=== PATIENT | female | born 1965 | race Caucasian/White ===

== ENCOUNTER 2023-04-01 09:51 | Outpatient (OUT) | payer MEDICARE, SELFPAY ==
--- NOTE | 2023-04-01 09:57 | MM_ITS ---
Patient: CATHERINE LO Exam Date: 04/01/2023 : 1965 Gender:F Ordering : DR SHANTA HOFFMAN M.D. Admission #: [id number] Family : Order #: [id number] CLICK HERE TO VIEW EXAM RADIOLOGY REPORT PROCEDURE: MM TOMOSYNTHESIS SCREENING BI COMPARISON: MG MAMM SCREEN 3D OSCAR CAD, 12/20/2020. MG MAMM SCREEN 3D OSCAR CAD, 01/08/2022. INDICATIONS: Screening Calculator Name NCI Breast Cancer Risk Assessment Tool 5 Year Breast Cancer Risk 1.40% Lifetime Breast Cancer Risk 8.70% Personal Breast Cancer No Personal Ovarian Cancer No Treatments None Family Cancers Grandmother-paternal with ovarian cancer at age ~35; Father with lung cancer at age 68. LOCATION: [facility] BREAST COMPOSITION: Heterogeneously dense,which may obscure small masses. FINDINGS: DIAGNOSTIC CATEGORY 2--BENIGN FINDING. NO CHANGE FROM COMPARISON. Scattered benign-appearing calcifications are present. RIGHT BREAST: No significant suspicious finding. LEFT BREAST: No significant suspicious finding. RECOMMENDATIONS: ROUTINE MAMMOGRAM AND CLINICAL EVALUATION IN 12 MONTHS. PLEASE NOTE: A NORMAL MAMMOGRAM DOES NOT EXCLUDE THE POSSIBILITY OF BREAST CANCER. A CLINICALLY SUSPICIOUS PALPABLE LUMP SHOULD BE BIOPSIED. Dictated by: Pavan Elder MD on 04/01/2023 at 12:17 Approved by: Pavan Elder MD on 04/01/2023 at 12:53
== END 2023-04-01 09:52 | disposition home or self-care (01) ==
LOC: MAMMO 09:54
PROVIDERS: PCP Family Medicine; Visit Provider Family Medicine
DX: Z12.31 Encounter for screening mammogram for malignant neoplasm of breast (principal); Z80.41 Family history of malignant neoplasm of ovary; Z80.1 Family history of malignant neoplasm of trachea, bronchus and lung
CPT/HCPCS: 77063; 77067

== ENCOUNTER 2024-01-08 07:21 | Outpatient (REF) | payer MEDICARE, SELFPAY ==
--- OUTSIDE RECORDS SUMMARY | 2024-01-09 07:25 | XMS_ITS | CCD ---
Author Organization [facility] Inform ion Partnership [facility] Care Team Providers Care Doctor Of Audiology Name Role Phone DALTON, DR WOMACK Attending Unavailable DALTON, DR WOMACK Consulting Unavailable DALTON, DR WOMACK Primary Care Unavailable DALTON, DR WOMACK Admitting Unavailable Zieber, DR Yu Consulting Unavailable WEST, DR RICKIE Alas Consulting Unavailable SEAN ELIZABETH Attending Unavailable SEAN ELIZABETH Admitting Unavailable DALTON, DR WOMACK Primary Care Unavailable SEAN ELIZABETH Consulting Unavailable MD Jany Hoffman Primary Care Provider MD Lasha Jones Attending Provider [phone] Lasha Jones Attending Unavailable Lasha Jones Admitting Unavailable Jany Hoffman Primary Care Unavailable JANY HOFFMAN Attending Unavailable Problems Problem Classification Problem Date Documented Da te Episodic/Chronic Menopausal disorders (4 sources) Other primary ovarian failure; Translations: [OTHER PRIMARY OVARIAN FAILURE] Onset: 03-05-2022 Chronic Open wounds of head; neck; and trunk (1 source) Puncture wound of abdominal wall without foreign body, unspecified quadrant without penetration into peritoneal cavity, initial encounter; Translations: [Puncture wound of abdominal wall] 01-07-2020 Episodic Osteoporosis (1 source) Age-related osteoporosis without current pathological fracture; Translations: [Age-related osteoporosis without current pathological fracture] Onset: 02-19-2023 Chronic Other bone disease and musculoskeletal deformities (1 source) Other specified disorders of bone density and structure, unspecified site; Translations: [OTH D/O BONE DEN STRUCT UNS SITE] Onset: 03-07-2022 Episodic Other screening for suspected conditions (not mental disorders or infectious disease) (4 sources) Encounter for screening mammogram for malignant neoplasm of breast; Translations: [ENC SCR MAMMO MALIG NEOPLASM BREAST] Onset: 01-08-2022 Episodic Residual codes; unclassified (1 source) Family history of malignant neoplasm of trachea, bronchus and lung; Translations: [FAM HX MALIG NEOPLSM TRACH BRON LNG] Onset: 01-09-2022 Episodic Residual codes; unclassified (1 source) Family history of malignant neoplasm of ovary; Translations: [FAM HX MALIGNANT NEOPLASM OVARY] Onset: 01-09-2022 Episodic Results Test Name Value Interpretation Reference Range Facility Basic Metabolic Panelon 02-01 Anion gap [Moles/Vol] 13.9 mmol/L Normal 6.0-15.0 [facility] Comment on above: Performed By: #### B MP, CK, TSH3, PHOS, PTH, MG, ESR, [id number], CBC, CRP #### [facility] [address] Calcium [Mass/Vol] 10.1 mg/dL Normal 8.6-10.3 [facility] Comment on above: Performed By: #### B MP, CK, TSH3, PHOS, PTH, MG, ESR, [id number], CBC, CRP #### [facility] [address] Chloride [Moles/Vol] 103 mmol/L Normal 98-107 [facility] Comment on above: Performed By: #### B MP, CK, TSH3, PHOS, PTH, MG, ESR, [id number], CBC, CRP #### [facility] [address] CO2 [Moles/Vol] 29.0 mmol/L Normal 21.0-31.[address] [facility] Comment on above: Performed By: #### B MP, CK, TSH3, PHOS, PTH, MG, ESR, [id number], CBC, CRP #### [facility] [address] Creatinine [Mass/Vol] 0.87 mg/dL Normal 0.60-1.20 [facility] Comment on above: Performed By: #### B MP, CK, TSH3, PHOS, PTH, MG, ESR, [id number], CBC, CRP #### [facility] [address] [place] [address] [place] GFR/1.73 sq M.predicted MDRD (S/P/Bld) [Vol rate/Area] mL/min/{1.73_m2} Normal [facility] Comment on above: Performed By: #### B MP, CK, TSH3, PHOS, PTH, MG, ESR, [id number], CBC, CRP #### [facility] [address] Glucose [Mass/Vol] 103 mg/dL High 70-100 [facility] Comment on above: Result Comment: [facility] Glucose Reference Range is dependent on time and content of last meal. Glucose of more than 200 mg/dL in a nonstressed, ambulatory subject supports the diagnosis of Diabetes Mellitus. ADA recommended reference range Performed By: #### B MP, CK, TSH3, PHOS, PTH, MG, ESR, [id number], CBC, CRP #### [facility] [address] Potassium [Moles/Vol] 4.9 mmol/L Normal 3.5-5.1 [facility] Comment on above: Performed By: #### B MP, CK, TSH3, PHOS, PTH, MG, ESR, [id number], CBC, CRP #### [facility] [address] Sodium [Moles/Vol] 141 mmol/L Normal 136-145 [facility] Comment on above: Performed By: #### B MP, CK, TSH3, PHOS, PTH, MG, ESR, [id number], CBC, CRP #### [facility] [address] Urea nitrogen [Mass/Vol] 16 mg/dL Normal 7-25 [facility] Comment on above: Performed By: #### B MP, CK, TSH3, PHOS, PTH, MG, ESR, [id number], CBC, CRP #### [facility] [address] Basophils Auto (Bld) [#/Vol] Ordered By: Lasha Jones on 02-19-2023 Basophils (Bld) [#/Vol] 0.1 10*3/uL 0.0-0.2 [facility] Basophils/100 WBC Auto (Bld) Ordered By: Lasha Jones on 02-19-2023 Basophils/100 WBC (Bld) 1.1 % . [facility] C reactive protein [Mass/vol ume] in Serum or PlasmaOrdered By: Lasha Jones on 02-19-2023 CRP [Mass/Vol] < 0.5 mg/dL 0.0-0.5 [facility] C-Reactive Proteinon 023 CRP [Mass/Vol] mg/L Normal 0.0-0.5 [facility] Comment on above: Performed By: #### B MP, CK, TSH3, PHOS, PTH, MG, ESR, [id number], CBC, CRP #### [facility] [address] Calcium [Mass/volume] in Ser um or PlasmaOrdered By: Lasha Jones on 02-19-2023 Calcium [Mass/Vol] 10.1 mg/dL 8.6-10.3 [facility] Carbon dioxide, total [Moles /volume] in Serum or PlasmaOrdered By: Lasha Jones on 02-19-2023 CO2 [Moles/Vol] 29.0 mmol/L 21.0-31.[address] [facility] Chloride [Moles/volume] in S rosita or PlasmaOrdered By: Lasha Jones on 02-19-2023 Chloride [Moles/Vol] 103 mmol/L 98-107 [facility] Complete Blood Count Auto Di ffon 02-19-2023 Basophils (Bld) [#/Vol] 0.1 10*3/uL Normal 0.0-0.2 [facility] Comment on above: Performed By: #### B MP, CK, TSH3, PHOS, PTH, MG, ESR, [id number], CBC, CRP #### [facility] [address] [place] [id number] [place] Basophils/100 WBC (Bld) 1.1 % Normal . [facility] Comment on above: Performed By: #### B MP, CK, TSH3, PHOS, PTH, MG, ESR, [id number], CBC, CRP #### [address] Eosinophils (Bld) [#/Vol] 0.1 10*3/uL Normal 0.0-0.45 [facility] Comment on above: Performed By: #### B MP, CK, TSH3, PHOS, PTH, MG, ESR, [id number], CBC, CRP #### [address] Eosinophils/100 WBC (Bld) 1.9 % Normal . [facility] Comment on above: Performed By: #### B MP, CK, TSH3, PHOS, PTH, MG, ESR, [id number], CBC, CRP #### [address] Erythrocyte distribution width (RBC) [Ratio] 13.7 % Normal 11.9-15.3 [facility] Comment on above: Performed By: #### B MP, CK, TSH3, PHOS, PTH, MG, ESR, [id number], CBC, CRP #### [address] Hematocrit (Bld) [Volume fraction] 41.6 % Normal 34.0-46.4 [facility] Comment on above: Performed By: #### B MP, CK, TSH3, PHOS, PTH, MG, ESR, [id number], CBC, CRP #### [address] Hemoglobin (Bld) [Mass/Vol] 13.6 g/dL Normal 11.8-15.4 [facility] Comment on above: Performed By: #### B MP, CK, TSH3, PHOS, PTH, MG, ESR, [id number], CBC, CRP #### [address] Lymphocytes (Bld) [#/Vol] 1.9 10*3/uL Normal 1.00-4.8 [facility] Comment on above: Performed By: #### B MP, CK, TSH3, PHOS, PTH, MG, ESR, [id number], CBC, CRP #### [address] Lymphocytes/100 WBC (Bld) 35.6 % Normal . [facility] Comment on above: Performed By: #### B MP, CK, TSH3, PHOS, PTH, MG, ESR, [id number], CBC, CRP #### [address] MCH (RBC) [Entitic mass] 29.0 pg Normal 24.7-34.3 [facility] Comment on above: Performed By: #### B MP, CK, TSH3, PHOS, PTH, MG, ESR, [id number], CBC, CRP #### [address] MCV (RBC) [Entitic vol] 88.4 fL Normal 80-100 [facility] Comment on above: Performed By: #### B MP, CK, TSH3, PHOS, PTH, MG, ESR, [id number], CBC, CRP #### [address] Mean Corpuscular HGB Conc 32.8 g/dL Normal 32.0-35.0 [facility] Comment on above: Performed By: #### B MP, CK, TSH3, PHOS, PTH, MG, ESR, [id number], CBC, CRP #### [address] Monocytes (Bld) [#/Vol] 0.3 10*3/uL Normal 0.0-0.8 [facility] Comment on above: Performed By: #### B MP, CK, TSH3, PHOS, PTH, MG, ESR, [id number], CBC, CRP #### [address] Monocytes/100 WBC (Bld) 6.0 % Normal . [facility] Comment on above: Performed By: #### B MP, CK, TSH3, PHOS, PTH, MG, ESR, [id number], CBC, CRP #### [facility] [address] Neutrophils (Bld) [#/Vol] 3.0 10*3/uL Normal 1.8-7.7 [facility] Comment on above: Performed By: #### B MP, CK, TSH3, PHOS, PTH, MG, ESR, [id number], CBC, CRP #### [address] Neutrophils/100 WBC (Bld) 55.4 % Normal . [facility] Comment on above: Performed By: #### B MP, CK, TSH3, PHOS, PTH, MG, ESR, [id number], CBC, CRP #### [address] NRBC% 0.1 /100{WBC} Normal 0-0.5 [facility] Comment on above: Performed By: #### B MP, CK, TSH3, PHOS, PTH, MG, ESR, [id number], CBC, CRP #### [address] Platelet mean volume (Bld) [Entitic vol] 7.6 fL Normal 6.3-10.7 [facility] Comment on above: Performed By: #### B MP, CK, TSH3, PHOS, PTH, MG, ESR, [id number], CBC, CRP #### [address] Platelets (Bld) [#/Vol] 389 10*3/uL Normal 150-450 [facility] Comment on above: Performed By: #### B MP, CK, TSH3, PHOS, PTH, MG, ESR, [id number], CBC, CRP #### [address] RBC (Bld) [#/Vol] 4.70 10*6/uL Normal 3.60-5.00 [facility] Comment on above: Performed By: #### B MP, CK, TSH3, PHOS, PTH, MG, ESR, [id number], CBC, CRP #### [facility] [address] WBC (Bld) [#/Vol] 5.4 10*3/uL Normal 3.8-11.6 [facility] Comment on above: Performed By: #### B MP, CK, TSH3, PHOS, PTH, MG, ESR, [id number], CBC, CRP #### [facility] [address] Creatine Kinaseon 02-19-2023 CK [Catalytic activity/Vol] 111 U/L Normal [facility] Comment on above: Result Comment: PERF ORMED BY: [place] [address] PATHOLOGIST [employer]CTIONAL [employer]WRIT[employer] JOSE BRITT M.D. Performed By: #### B MP, CK, TSH3, PHOS, PTH, MG, ESR, [id number], CBC, CRP #### [address] Creatine kinase [Enzymatic a ctivity/volume] in Serum or PlasmaOrdered By: Lasha Jones on 02-19-2023 CK [Catalytic activity/Vol] 111 U/L [facility] Creatinine [Mass/volume] in Serum or PlasmaOrdered By: Lasha Jones on 02-19-2023 Creatinine [Mass/Vol] 0.87 mg/dL 0.60-1.20 [facility] Eosinophils Auto (Bld) [#/Vo l]Ordered By: Lasha Jones on 02-19-2023 Eosinophils (Bld) [#/Vol] 0.1 10*3/uL 0.0-0.45 [facility] Eosinophils/100 WBC Auto (Bl d)Ordered By: Lasha Jones on 02-19-2023 Eosinophils/100 WBC (Bld) 1.9 % . [facility] Erythrocyte Sedimentation Ra ashley 02-19-2023 ESR (Bld) [Velocity] 27 mm/h Normal 0-29 [facility] Comment on above: Result Comment: PERF ORMED BY: [place] [id number] PATHOLOGIST [employer]CTIONAL [employer] JOSE BRITT M.D. Performed By: #### B MP, CK, TSH3, PHOS, PTH, MG, ESR, [id number], CBC, CRP #### [facility] [address] [place] [id number] [facility] Erythrocyte distribution wid th Auto (RBC) [Ratio]Ordered By: Lasha Jones on 02-19-2023 Erythrocyte distribution width (RBC) [Ratio] 13.7 % 11.9-15.3 [facility] Erythrocyte sedimentation ra te by Photometric methodOrdered By: Lasha Jones on 02-19-2023 ESR Photometric method (Bld) [Velocity] 27 mm/hr 0-29 [facility] Glucose [Mass/volume] in Ser um or PlasmaOrdered By: Lasha Jones on 02-19-2023 Glucose [Mass/Vol] 103 mg/dL 70-100 [facility] Comment on above: ADA recommended refe rence rangeRandom Glucose Reference Range is dependent on time and content of last meal. Glucose of more than 200 mg/dL in a nonstressed, ambulatory subject supports the diagnosis of Diabetes Mellitus. Hematocrit Auto (Bld) [Volum e fraction]Ordered By: Lasha Jones on 02-19-2023 Hematocrit (Bld) [Volume fraction] 41.6 % 34.0-46.4 [facility] Hemoglobin [Mass/volume] in BloodOrdered By: Lasha Jones on 02-19-2023 Hemoglobin (Bld) [Mass/Vol] 13.6 g/dL 11.8-15.4 [facility] Leukocytes [#/volume] correc marley for nucleated erythrocytes in Blood by Automated counOrdered By: Lasha Jones on 02-19-2023 WBC corrected for nucl RBC Auto (Bld) [#/Vol] 5.4 10*3/uL 3.8-11.6 [facility] Lymphocytes Auto (Bld) [#/Vo l]Ordered By: Lasha Jones on 02-19-2023 Lymphocytes (Bld) [#/Vol] 1.9 10*3/uL 1.00-4.8 [facility] Lymphocytes/100 WBC Auto (Bl d)Ordered By: Lasha Jones on 02-19-2023 Lymphocytes/100 WBC (Bld) 35.6 % . [facility] MCH Auto (RBC) [Entitic mass ]Ordered By: Lasha Jones on 02-19-2023 MCH (RBC) [Entitic mass] 29.0 pg 24.7-34.3 [facility] MCHC Auto (RBC) [Mass/Vol]Or dered By: Lasha Jones on 02-19-2023 MCHC (RBC) [Mass/Vol] 32.8 g/dL 32.0-35.0 [facility] MCV Auto (RBC) [Entitic vol] Ordered By: Lasha Jones on 02-19-2023 MCV (RBC) [Entitic vol] 88.4 fL 80-100 [facility] Magnesiumon 02-19-2023 Magnesium [Mass/Vol] 2.3 mg/dL Normal 1.9-2.7 [facility] Comment on above: Performed By: #### B MP, CK, TSH3, PHOS, PTH, MG, ESR, [id number], CBC, CRP #### [facility] [address] Magnesium [Mass/volume] in S rosita or PlasmaOrdered By: Lasha Jones on 02-19-2023 Magnesium [Mass/Vol] 2.3 mg/dL 1.9-2.7 [facility] Monocytes Auto (Bld) [#/Vol] Ordered By: Lasha Jones on 02-19-2023 Monocytes (Bld) [#/Vol] 0.3 10*3/uL 0.0-0.8 [facility] Monocytes/100 WBC Auto (Bld) Ordered By: Lasha Jones on 02-19-2023 Monocytes/100 WBC (Bld) 6.0 % . [facility] Neutrophils Auto (Bld) [#/Vo l]Ordered By: Lasha Jones on 02-19-2023 Neutrophils (Bld) [#/Vol] 3.0 10*3/uL 1.8-7.7 [facility] Neutrophils/100 WBC Auto (Bl d)Ordered By: Lasha Jones on 02-19-2023 Neutrophils/100 WBC (Bld) 55.4 % . [facility] No Panel InformationOrdered By: Lasha Jones on 02-19-2023 Estimated GFR (CKD-EPI) > 60.0 mL/Min [facility] Creatinine Clearance (Chem N/A [facility] Nucleated erythrocytes [Pres ence] in Blood by Automated countOrdered By: Lasha Jones on 02-19-2023 Nucleated RBC Auto Ql (Bld) 0.1 /100{WBC} 0-0.5 [facility] Parathyrin.intact [Mass/volu me] in Serum or PlasmaOrdered By: Lasha Jones on 02-19-2023 Parathyrin.intact [Mass/Vol] 47.1 pg/mL [facility] Parathyroid Hormone Intacton 02-19-2023 Parathyroid Hormone Intact 47.1 pg/mL Normal [facility] Comment on above: Result Comment: PERF ORMED BY: [place] [address] PATHOLOGIST [employer]AL [employer] JOSE BRITT M.D. Performed By: #### B MP, CK, TSH3, PHOS, PTH, MG, ESR, [id number], CBC, CRP #### [facility] [address] [place] [address] Phosphate [Mass/volume] in S rosita or PlasmaOrdered By: Lasha Jones on 02-19-2023 Phosphate [Mass/Vol] 4.1 mg/dL 3.7-7.2 [facility] Phosphoruson 02-19-2023 Phosphate [Mass/Vol] 4.1 mg/dL Normal 3.7-7.2 [facility] Comment on above: Performed By: #### B MP, CK, TSH3, PHOS, PTH, MG, ESR, [id number], CBC, CRP #### [facility] [address] [place] [address] Platelet mean volume Auto (B ld) [Entitic vol]Ordered By: Lasha Jones on 02-19-2023 Platelet mean volume (Bld) [Entitic vol] 7.6 fL 6.3-10.7 [facility] Platelets Auto (Bld) [#/Vol] Ordered By: Lasha Jones on 02-19-2023 Platelets (Bld) [#/Vol] 389 10*3/uL 150-450 [facility] Potassium [Moles/volume] in Serum or PlasmaOrdered By: Lasha Jones on 02-19-2023 Potassium [Moles/Vol] 4.9 mmol/L 3.5-5.1 [facility] RBC Auto (Bld) [#/Vol]Ordere d By: Lasha Jones on 02-19-2023 RBC (Bld) [#/Vol] 4.70 10*6/uL 3.60-5.00 [facility] Serum or plasma anion gap de terminationOrdered By: Lasha Jones on 02-19-2023 Anion gap [Moles/Vol] 13.9 mmol/L 6.0-15.0 [facility] Sodium [Moles/volume] in Ser um or PlasmaOrdered By: Lasha Jones on 02-19-2023 Sodium [Moles/Vol] 141 mmol/L 136-145 [facility] Thyroid Stimulating Hormoneo n 02-19-2023 TSH Qn 1.74 m[IU]/L Normal 0.45-5.33 [facility] Comment on above: Performed By: #### B MP, CK, TSH3, PHOS, PTH, MG, ESR, [id number], CBC, CRP #### [facility] [address] [place] [address] Thyrotropin [Units/volume] i n Serum or PlasmaOrdered By: Lasha Jones on 02-19-2023 TSH Qn 1.74 m[IU]/L 0.45-5.33 [facility] Urea nitrogen [Mass/volume] in Serum or PlasmaOrdered By: Lasha Jones on 02-19-2023 Urea nitrogen [Mass/Vol] 16 mg/dL 7-25 [facility] Vitamin D 25 Hydroxy Totalon 02-19-2023 Vitamin D 25 Hydroxy Total 64.0 ng/mL Normal 30-100 [facility] Comment on above: Result Comment: JADE MIN D STATUS 25(OH)VITAMIN D RANGE (ng/mL) Deficient <20 Insufficient 20 to <30 Sufficient 30 to 100 Reference: Courtney Durand, Archana DURAN, et al. Evaluation,treatment, and prevention of vitamin D deficiency; an Endocrine Society clinical practice guideline. JCEM. 2010; 96(7):191-. PERFORMED BY: [facility] [address] [place] [id number] PATHOLOGIST FUNCTIONAL TE[employer]IT[employer] JOSE BRITT M.D. Performed By: #### B MP, CK, TSH3, PHOS, PTH, MG, ESR, [id number], CBC, CRP #### [facility] [address] Vitamin D+Metabolites [Mass/ volume] in Serum or PlasmaOrdered By: Lasha Jones on 02-19-2023 Vitamin D+Metabolites [Mass/Vol] 64.0 ng/mL 30-100 [facility] Comment on above: VITAMIN D STATUS 25( [place])VITAMIN D RANGE (ng/mL) Deficient <20 Insufficient 20 to <30Sufficient 30 to 100Reference: Courtney Durand, Archana DURAN, et al. Evaluation,treatment, and prevention of vitamin D deficiency; an Endocrine Society clinical practice guideline. JCEM. 2010; 96(7):1911-30. WBC Auto (Bld) [#/Vol]Ordere d By: Lasha Jones on 02-19-2023 WBC (Bld) [#/Vol] 5.4 10*3/uL 3.8-11.6 [facility] XR DEXA BONE DENSITYon 03-05 XR DEXA BONE DENSITY EXAMINATION: XR DEX A BONE DENSITY, 03/05/2022 9:55 AM EDT HISTORY: Primary ovarian failure COMPARISON: DEXA bone densitometry 11/23/2019 TECHNIQUE: Dual-energy X-ray absorptiometry (DEXA) bone density study performed for the axial skeleton. FINDINGS: SPINE ANALYSIS: Average bone mineral density is 0.914 g/cm2. T-score (standard deviation relative to young adult mean): -2.2 . +3.6% change since prior study. HIP ANALYSIS: Lowest bone mineral density is within the femoral neck, 0.802 g/cm2. T-score (standard deviation relative to young adult mean): -1.7 . -1.1% change since prior study. IMPRESSION: World Aram Organization Classification: Osteopenia - Moderate Fracture Risk Electronically authenticated by: VINCENZO MALAVE Date: 2022-03-05 10:34 Normal [facility] MG MAMM SCREEN 3D OSCAR CADon 01-08-2022 MG MAMM SCREEN 3D OSCAR CAD Patient: CATHERINE LO Exam Date: 01/08/2022 : 1965 Gender:F Ordering : M[employer] 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 Order #: [id number] CLICK HERE TO VIEW EXAM RADIOLOGY REPORT PROCEDURE: MAMMOGRAM SCREENING 3D BILATERAL CAD COMPARISON: MG MAMM SCREEN 3D OSCAR CAD, 12/20/2020. MG MAMM SCREEN OSCAR W CAD, 11/23/2019. INDICATIONS: Screening mammography Calculator Name NCI Breast Cancer Risk Assessment Tool 5 Year Breast Cancer Risk 1.40% Lifetime Breast Cancer Risk 8.90% Personal Breast Cancer No Personal Ovarian Cancer No Treatments None Family Cancers Grandmother-paternal with ovarian cancer at age 35; Father with lung cancer at age 68. LOCATION: [facility] BREAST COMPOSITION: Heterogeneously dense,which may obscure small masses. FINDINGS: DIAGNOSTIC CATEGORY 2--BENIGN FINDING. NO CHANGE FROM COMPARISON. Scattered benign-appearing calcifications are present. RIGHT BREAST: No significant suspicious finding. LEFT BREAST: No significant suspicious finding. RECOMMENDATIONS: ROUTINE MAMMOGRAM AND CLINICAL EVALUATION IN 12 MONTHS. PLEASE NOTE: A NORMAL MAMMOGRAM DOES NOT EXCLUDE THE POSSIBILITY OF BREAST CANCER. A CLINICALLY SUSPICIOUS PALPABLE LUMP SHOULD BE BIOPSIED. Dictated by: Rickie Randall MD on 01/08/2022 at 11:03 Approved by: Rickie Randall MD on 01/08/2022 at 11:04 Normal [facility] C-Reactive Proteinon 022 CRP IV <0.3 Normal [facility] In[employer] Analyst Comment on above: Performed By: #### T SH, CMP, CRP, ESR, CK, CBCAD #### [facility] [address] [place], [place] [id number] Complete Blood Count with Au to Diffon 09-10-2021 Basophils (Bld) [#/Vol] 0.08 10*3/uL Normal 0.00-0.20 [facility] Comment on above: Performed By: #### T SH, CMP, CRP, ESR, CK, CBCAD #### [facility] [address] [place], [place] [id number] Basophils/100 WBC (Bld) 1.0 % Normal [facility] Comment on above: Performed By: #### T SH, CMP, CRP, ESR, CK, CBCAD #### [facility] [address] [place], [place] [id number] Eosinophils (Bld) [#/Vol] 0.19 10*3/uL Normal 0.02-0.50 [facility] Comment on above: Performed By: #### T SH, CMP, CRP, ESR, CK, CBCAD #### [facility] [address] [place], [place] [id number] Eosinophils/100 WBC (Bld) 2.4 % Normal [facility] Comment on above: Performed By: #### T SH, CMP, CRP, ESR, CK, CBCAD #### [facility] [address] [place], [place] [id number] Erythrocyte distribution width (RBC) [Ratio] 14.3 % Normal 11.0-15.0 [facility] Comment on above: Performed By: #### T SH, CMP, CRP, ESR, CK, CBCAD #### [facility] [address] [place], [place] [id number] Hematocrit (Bld) [Volume fraction] 43.5 % Normal 35.0-47.0 [facility] Comment on above: Performed By: #### T SH, CMP, CRP, ESR, CK, CBCAD #### [facility] [address] [place], [place] [id number] Hemoglobin (Bld) [Mass/Vol] 13.9 g/dL Normal 11.6-15.5 [facility] Comment on above: Performed By: #### T SH, CMP, CRP, ESR, CK, CBCAD #### [facility] [address] [place], [place] [id number] Lymphocytes (Bld) [#/Vol] 2.6 10*3/uL Normal 0.9-3.9 [facility] Comment on above: Performed By: #### T SH, CMP, CRP, ESR, CK, CBCAD #### [facility] [address] [place], [place] [id number] Lymphocytes/100 WBC (Bld) 33.2 % Normal [facility] Comment on above: Performed By: #### T SH, CMP, CRP, ESR, CK, CBCAD #### [facility] [address] [place], [place] [id number] MCH (RBC) [Entitic mass] 28.8 pg Normal 27.0-33.0 [facility] Comment on above: Performed By: #### T SH, CMP, CRP, ESR, CK, CBCAD #### [facility] [address] [place], [place] [id number] MCHC (RBC) [Mass/Vol] 32.0 g/dL Normal 32.0-36.0 [facility] Comment on above: Performed By: #### T SH, CMP, CRP, ESR, CK, CBCAD #### [facility] [address] [place], [place] [id number] MCV (RBC) [Entitic vol] 90 fL Normal 80-100 [facility] Comment on above: Performed By: #### T SH, CMP, CRP, ESR, CK, CBCAD #### [facility] [address] [place], [place] [id number] Monocytes (Bld) [#/Vol] 0.5 10*3/uL Normal 0.2-0.9 [facility] Comment on above: Performed By: #### T SH, CMP, CRP, ESR, CK, CBCAD #### [facility] [address] [place], [place] [id number] Monocytes/100 WBC (Bld) 6.9 % Normal [facility] Comment on above: Performed By: #### T SH, CMP, CRP, ESR, CK, CBCAD #### [facility] [address] [place], [place] [id number] Neutrophils (Bld) [#/Vol] 4.4 10*3/uL Normal 1.5-7.8 [facility] Comment on above: Performed By: #### T SH, CMP, CRP, ESR, CK, CBCAD #### [facility] [address] [place], [place] [id number] Neutrophils/100 WBC (Bld) 56.2 % Normal [facility] Comment on above: Performed By: #### T SH, CMP, CRP, ESR, CK, CBCAD #### [facility] [address] [place], [place] [id number] Platelet mean volume (Bld) [Entitic vol] 9.50 fL Normal 7.50-12.50 [facility] Comment on above: Performed By: #### T SH, CMP, CRP, ESR, CK, CBCAD #### [facility] [address] [place], [place] [id number] Platelets (Bld) [#/Vol] 427 10*3/uL High 140-400 [facility] Comment on above: Performed By: #### T SH, CMP, CRP, ESR, CK, CBCAD #### [facility] [address] [place], [place] [id number] RBC (Bld) [#/Vol] 4.83 10*6/uL Normal 3.90-5.20 [facility] Comment on above: Performed By: #### T SH, CMP, CRP, ESR, CK, CBCAD #### [facility] [address] [place], [place] [id number] RDW-SD 47.3 fL Normal 37.0-50.0 [facility] Comment on above: Performed By: #### T SH, CMP, CRP, ESR, CK, CBCAD #### [facility] [address] [place], [place] [id number] WBC (Bld) [#/Vol] 7.9 10*3/uL Normal 3.8-11.0 [facility] Comment on above: Performed By: #### T SH, CMP, CRP, ESR, CK, CBCAD #### [facility] [address] [place], [place] [id number] Comprehensive Metabolic Pane taiwo 09-10-2021 Albumin [Mass/Vol] 5.2 g/dL High 3.6-5.1 [facility] Comment on above: Performed By: #### T SH, CMP, CRP, ESR, CK, CBCAD #### [facility] [address] [place], [place] [id number] Albumin/Globulin [Mass ratio] 2.4 {ratio} Normal 1.0-2.5 [facility] Comment on above: Performed By: #### T SH, CMP, CRP, ESR, CK, CBCAD #### [facility] [address] [place], [place] [id number] ALP [Catalytic activity/Vol] 115 U/L Normal 35-119 [facility] Comment on above: Performed By: #### T SH, CMP, CRP, ESR, CK, CBCAD #### [facility] [address] [place], [place] [id number] ALT [Catalytic activity/Vol] 18 U/L Normal 6-33 [facility] Comment on above: Result Comment: 05/02 Female reference range changed. Performed By: #### T SH, CMP, CRP, ESR, CK, CBCAD #### [facility] [address] [place], [place] [id number] Anion gap [Moles/Vol] 20 mmol/L Normal 12-20 [facility] Comment on above: Result Comment: Effe ctive 06/07/2019 reference range changed. Performed By: #### T SH, CMP, CRP, ESR, CK, CBCAD #### [facility] [address] [place], [place] [id number] AST [Catalytic activity/Vol] 24 U/L Normal 9-34 [facility] Comment on above: Performed By: #### T SH, CMP, CRP, ESR, CK, CBCAD #### [facility] [address] [place], [place] [id number] Bilirubin [Mass/Vol] 0.36 mg/dL Normal 0.30-1.20 [facility] Comment on above: Performed By: #### T SH, CMP, CRP, ESR, CK, CBCAD #### [facility] [address] [place], [place] [id number] BUN/CREA 23 Ratio High 6-22 [facility] Comment on above: Performed By: #### T SH, CMP, CRP, ESR, CK, CBCAD #### [facility] [address] [place], [place] [id number] Calcium [Mass/Vol] 10.3 mg/dL High 8.6-10.2 [facility] Comment on above: Performed By: #### T SH, CMP, CRP, ESR, CK, CBCAD #### [facility] [address] [place], [place] [id number] Chloride [Moles/Vol] 104 mmol/L Normal 98-107 [facility] Comment on above: Performed By: #### T SH, CMP, CRP, ESR, CK, CBCAD #### [facility] [address] [place], [place] [id number] CO2 [Moles/Vol] 23 mmol/L Normal 20-31 [facility] Comment on above: Performed By: #### T SH, CMP, CRP, ESR, CK, CBCAD #### [facility] [address] [place], [place] [id number] Creatinine [Mass/Vol] 0.8 mg/dL Normal 0.6-1.4 [facility] Comment on above: Performed By: #### T SH, CMP, CRP, ESR, CK, CBCAD #### [facility] [address] [place], [place] [id number] eGFRAA 97 mL/min/1.73m2 Normal >60 [facility] Comment on above: Performed By: #### T SH, CMP, CRP, ESR, CK, CBCAD #### [facility] [address] [place], [place] [id number] eGFRNAA 80 mL/min/1.73m2 Normal >60 [facility] Comment on above: Performed By: #### T SH, CMP, CRP, ESR, CK, CBCAD #### [facility] [address] [place], [place] [id number] Globulin (S) [Mass/Vol] 2.2 g/dL Normal 1.9-3.7 [facility] Comment on above: Performed By: #### T SH, CMP, CRP, ESR, CK, CBCAD #### [facility] [address] [place], [place] [id number] Glucose [Mass/Vol] 90 mg/dL Normal 65-99 [facility] [place] [facility] Comment on above: Result Comment: For FASTING Glucose --- ADA reference ranges: Normal 65-99 mg/dl Prediabetes 100-125 Diabetes >/= 126 Performed By: #### T SH, CMP, CRP, ESR, CK, CBCAD #### [facility] [address] [place], [place] [id number] Potassium [Moles/Vol] 4.3 mmol/L Normal 3.5-5.5 [facility] Comment on above: Performed By: #### T SH, CMP, CRP, ESR, CK, CBCAD #### [facility] [address] [place], [place] [id number] Protein [Mass/Vol] 7.4 g/dL Normal 6.1-8.1 [facility] [place] [facility] Comment on above: Performed By: #### T SH, CMP, CRP, ESR, CK, CBCAD #### [facility] [address] [place], [place] [id number] Sodium [Moles/Vol] 143 mmol/L Normal 135-146 [facility] [place] [facility] Comment on above: Performed By: #### T SH, CMP, CRP, ESR, CK, CBCAD #### [facility] [address] [place], [place] [id number] Urea nitrogen [Mass/Vol] 18 mg/dL Normal 7-25 [facility] Comment on above: Performed By: #### T SH, CMP, CRP, ESR, CK, CBCAD #### [facility] [address] [place], [place] [id number] Creatine Kinaseon 09-10-2021 CK [Catalytic activity/Vol] 72 U/L Normal 26-192 [facility] Comment on above: Performed By: #### T SH, CMP, CRP, ESR, CK, CBCAD #### [facility] [address] [place], [place] [id number] Hemoglobin A1Con 09-10-2021 EAG 114.02 Normal [facility] Comment on above: Performed By: #### A 1C #### [facility] [address] [place], [place] [id number] HbA1c (Bld) [Mass fraction] 5.6 % Normal 4.0-6.0 [facility] Comment on above: Performed By: #### A 1C #### [facility] [address] [place] [id number] Q - MARINE MULTIPLEX W/ REFLEX TO 11 ANTIBODY CASCADEon 09-10-2021 ANACHOICE(R) SCREEN Negative Normal NEGATIVE [facility] Comment on above: Order Comment: [facility] performed at: [facility], [facility], [address] , [address] [place] [address], [id number], Steward/Stewardess Tourist Class: Lisandro Layton MD [facility] Collection Date/Time: [facility] Results Received Date/Time: [facility] Reported Date/Time: Result Comment: A ne gative MARINE Multiplex, with Reflex to 11 Antibody [place] indicates the absence of detectable antibodies to component analytes consisting of double stranded DNA (dsDNA), chromatin, ribonucleoprotein (CIRCULATION MANAGER), Alexander/CIRCULATION MANAGER (Sm/CIRCULATION MANAGER), Alexander (Sm), SS-A, SS-B, Ashley-1, centromere B, Scl-70 and ribosomal P. A negative result should be interpreted in the context of the clinical and laboratory findings and does not rule out autoimmune disease characterized by other autoantibody specificities such as rheumatoid arthritis, autoimmune hepatitis, primary biliary cirrhosis, autoimmune thyroiditis, [place]'s disease, pernicious anemia, autoimmune neuropathies, vasculitis, celiac disease, and bullous disease. For additional information, please refer to [email or web address]/[email or web address] (This link is being provided for informational/ educational purposes only.) Performed By: #### 1 9946, 6646 #### [facility] [address] [place] [address] Q - LYME DISEASE AB screen W /REFLEX TO IgG IgMon 09-10-2021 LYME AB SCREEN <0.90 Normal [facility] Comment on above: Order Comment: [facility] performed at: [facility], [facility], [address] , [address] [place] [address], [id number], Steward/Stewardess Tourist Class: Lisandro Layton MD [facility] Collection Date/Time: [facility] Results Received Date/Time: [id number] [facility] Reported Date/Time: Result Comment: Inde x Interpretation ----- < 0.90 Negative 0.90-1.09 Equivocal > 1.09 Positive As recommended by the Food and Drug Administration (FDA), all samples with positive or equivocal results in a Borrelia burgdorferi antibody screen will be tested using a blot method. Positive or equivocal screening test results should not be interpreted as truly positive until verified as such using a supplemental assay (e.g., B. burgdorferi blot). The screening test and/or blot for B. burgdorferi antibodies may be falsely negative in early stages of Lyme disease, including the period when erythema migrans is apparent. Performed By: #### 1 9946, 6646 #### [facility] [address] [place] [address] RBC Sedimentation Rateon ESR (Bld) [Velocity] 37.00 mm/h High 0.00-30.00 [facility] Comment on above: Performed By: #### T SH, CMP, CRP, ESR, CK, CBCAD #### [facility] [address] [place], [place] [id number] TSHon 09-10-2021 TSH 2.500 uIU/mL Normal 0.400-4.500 [facility] Analyst Comment on above: Performed By: #### T SH, CMP, CRP, ESR, CK, CBCAD #### [facility] [address] [place], [place] [id number] Vitamin B12on 09-10-2021 Cobalamin (Vitamin B12) [Mass/Vol] 1113 pg/mL High 211-946 [facility] Comment on above: Performed By: #### B 12 #### [facility] [address] [place], [place] [id number] Outside Mammographyon 2020 Outside Mammography [phone] [id number]:127 Normal [facility] CT CARDIAC SCORINGon 06- CT CARDIAC SCORING Addendum Begins Patient Name: CATHERINE LO ADDENDUM: NON-CARDIOVASCULAR FINDINGS INCLUDED LUNGS, AIRWAYS AND PLEURA Endotracheal / endobronchial lesion: Negative Nodule: Negative Airspace disease: Negative Pleural effusion: Negative Pneumothorax: Negative Other: No acute or contributory unanticipated findings INCLUDED NON-CARDIOVASCULAR KENNEDY AND MEDIASTINUM Adenopathy: Negative Included esophagus: Unremarkable Other: No acute or contributory unanticipated findings INCLUDED BONES: No acute skeletal findings, noting less sensitivity and specificity without dedicated sagittal and coronal reformatted series. INCLUDED CHEST WALL No acute or contributory unanticipated findings INCLUDED UPPER ABDOMEN No acute or contributory unanticipated findings ------- NON-CARDIOVASCULAR IMPRESSION NO ACUTE OR CONTRIBUTORY UNEXPECTED FINDINGS OF THE INCLUDED NON-CARDIOVASCULAR STRUCTURES Electronically signed by: OSMAN SAGE MD Addendum Ends Patient Name: CATHERINE LO STUDY: CT CARDIAC SCORING; 11/09/2018 10:41 am INDICATION: 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 COMPARISON: None. ACCESSION NUMBER(S): [id number] ORDERING CLINICIAN: NAOMI PADILLA TECHNIQUE: Using prospective ECG gating, CT scan of the coronary arteries was performed without intravenous contrast. Coronary calcium scoring was performed according to the method of Agatston. CT Dose-Length Product (DLP): 60.7 mGy*cm CT Dose Reduction Employed: Yes, prospective gating, iterative reconstruction. FINDINGS: The score and distribution of calcium in the coronary arteries is as follows: LM 0 LAD 0 LCx 0 RCA 0 Total 0 The visualized mid/lower ascending thoracic aorta measures 3.7 cm in diameter. The heart is normal in size. No pericardial effusion is present. IMPRESSION: 1. Coronary artery calcium score of 0*. *Coronary artery calcium scoring may be helpful in predicting the risk for future coronary heart disease events. According to the [place] [employer] Clinical Expert Consensus Task Force, such testing provides important prognostic information in patients with more than one coronary heart disease risk factor. The coronary artery calcium score correlates with the annual risk of a non-fatal myocardial infarction or coronary heart disease . Coronary artery score Annual Risk 0-99 0.4% 100-399 1.3% >400 2.4% These three breakpoints correspond to lower, intermediate and high risk states for future coronary events. Such information should be used, along with appropriate clinical judgment, to make decisions regarding the intensity of risk factor management strategies to treat blood lipids and to modify other non-lipid coronary risk factors. Reference: Adele P et al. Circulation. 2007; 115:402-426 Reading Business Unit Manager: Dr. Benoit Gu, Date: 11/10/2018 6:46 pm Electronically signed by: OSMAN SAGE MD [facility] Encounters Encounter Date Encounter Type Care Provider Facility Start: 08-26-2023 End: 08-26-2023 ambulatory JANY HOFFMAN Not Available Start: 02-19-2023 End: 02-19-2023 ambulatory Lasha Jones Facility:[facility] Start: 02-19-2023 End: 02-19-2023 ambulatory MD Jany Hoffman Work Phone: [facility] Work Phone: Start: 02-19-2023 End: 02-19-2023 Patient encounter procedure MD Jany Hoffman Work Phone: [facility] [address] Work Phone: Start: 03-05-2022 End: 03-06-[address] JANY HOFFMAN Facility:[facility] Start: 01-08-2022 End: 01-09-[address] RICKIE RANDALL Facility:[facility] Procedures Date Procedure Procedure Detail Performing Clinician Start: 10-27-2018 Echocardiography Immunizations Immunization Date Immunization Notes Care Provider Fa cility 01-07-2020 tetanus toxoid, redu lorene diphtheria toxoid, and acellular pertussis vaccine, adsorbed MD Jany Hoffman Work Phone: [facility] Payers Date Payer Category Payer Self-pay [id number] 1965 Unknown [id number] 1965 Unknown [id number] 1965 Unknown [id number] 1959 Medicare [id number] Unknown [employer] [id number] Unknown [id number] Social History Date Type Detail Facility Start: 01-07-2020 Tobacco smoking stat us NHIS Never smoked tobacco (finding) [facility] Start: 1965 Sex Assigned At Female F [facility] Evaluation note Note Date & Type Note Facility Evaluation note No assessment information availa ble [facility] Work Phone: Summary Purpose Family History No Family History Records Found Relationship Condition Age at Onset Recorded Date/T mary ann father Malignant neoplasm Unknown Advance Directives No Advanced Directives Records Found Advance Directive Response Recorded Date/ Time Advance Directives No March 12, 2018 11:49am Additional Source Comments INFORMATION SOURCE (unrecogn ized section and content) DATE CREATED AUTHOR 11/11/2018 [facility] DATE CREATED AUTHOR AUTHOR'S ORGANIZ ATION 09/11/2021 [facility] DATE CREATED AUTHOR AUTHOR'S ORGANIZ ATION 10/03/2021 [facility] DATE CREATED AUTHOR AUTHOR'S ORGANIZ ATION 03/08/2022 [facility] DATE CREATED AUTHOR AUTHOR'S ORGANIZ ATION 03/04/2023 [facility] DATE CREATED AUTHOR AUTHOR'S ORGANIZ ATION 08/27/2023 [facility] EPIC Care Teams (unrecognized sec tion and content) Team Status: Active Member Role Status Dates Jany Hoffman MD Primary Care Provider Active Team Status: Inactive Member Role Status Dates Jany Hoffman MD Primary Care Provider Active Lasha Jones MD Attending Provider Active Goals (unrecognized section and content) Goals may be documented in a n alternate section FOR RECORDS PERTAINING TO PATIENTS WHO ARE OR HAVE BEEN ENROLLED IN A CHEMICAL DEPENDENCY/SUBSTANCEABUSE PROGRAM, SOME INFORMATION MAY BE OMITTED. This clinical summary was aggregated from multiple sources. Caution should be exercised in using it in the provision of clinical care. This summary normalizes information from multiple sources, and as a consequence, information in this document may materially change the coding, format and clinical context of patient data. In addition, data may be omitted in some cases. CLINICAL DECISIONS SHOULD BE BASED ON THE PRIMARY CLINICAL RECORDS. [facility]. provides no warranty or guarantee of the accuracy or completeness of information in this document.
[2024-01-09 15:27] LABS: C. Difficile PCR NEGATIVE (NEGATIVE)
== END 2024-01-08 07:22 | disposition home or self-care (01) ==
LOC: LAB 07:21
PROVIDERS: PCP Family Medicine; Visit Provider Physician Assistant
DX: R19.7 Diarrhea, unspecified (principal); R19.5 Other fecal abnormalities
CPT/HCPCS: 87045; 87046; 87427; 87493

== ENCOUNTER 2024-02-04 12:30 | Outpatient (OUT) | payer MEDICARE, SELFPAY ==
--- NOTE | 2024-02-04 | CT_ITS ---
The [address] [address] Patient Name: CATHERINE LO MRN: [id number] date: 1965 Sex: F Assigned Patient Location: CT Current Patient Location: CT Accession/Order Number: [id number] Exam Date: 02/04/2024 13:35 Report Date: 02/04/2024 14:11 At the request of: NON-STAFF PHYSICIAN Procedure: CT abdomen pelvis w con EXAM: CT scan of the abdomen and pelvis using 100 mL of IV iodinated contrast. Oral contrast. Dose reduction technique used: Automated exposure control and/or adjustment of the mA and/or kV according to patient size and/or use of iterative reconstruction technique. REASON FOR EXAM: weight loss COMPARISON: None FINDINGS: Focally distended segment of the duodenum in the third portion of the duodenum that is hypoenhancing, unclear if this is simply due to duodenal contents versus a underlying mass. Suggestion of a small lucent lesion in the upper L3 vertebral body. Small fat-containing umbilical hernia. No evidence of appendicitis. No free fluid in the abdomen or pelvis. No free intraperitoneal air. No dilated or thickened loops of small bowel or colon. No hydronephrosis or obstructing renal or ureteral calculi. Liver, pancreas, spleen, bilateral kidneys, and bilateral adrenal glands are otherwise unremarkable. No lymphadenopathy in the abdomen or pelvis. Remainder unremarkable. CT/CT abdomen pelvis w con IMPRESSION: 1. Possible duodenal mass versus focally distended segment. Recommend further evaluation with endoscopy if none performed recently. 2. Small lucent L3 lesion could represent a small hemangioma although is indeterminate. Electronically authenticated by: STU AMBROSIO Date: 02/04/2024 14:11
--- OUTSIDE RECORDS SUMMARY | 2024-02-04 12:51 | XMS_ITS | CCD ---
Author Organization [facility] Inform ion Partnership [facility] Care Team Providers Care Cna Caregiver Name Role Phone DR JANY HOFFMAN Attending Unavailable DALTON, DR WOMACK Consulting Unavailable DALTON, DR WOMACK Primary Care Unavailable DALTON, DR WOMACK Admitting Unavailable Zieber, DR Yu Consulting Unavailable WEST, DR RICKIE Alas Consulting Unavailable SEAN ELIZABETH Attending Unavailable SEAN ELIZABETH Admitting Unavailable DALTON, DR WOMACK Primary Care Unavailable SEAN ELIZABETH Consulting Unavailable MD Jany Hoffman Primary Care Provider [phone] MD Lasha Jones Attending Provider Lasha Jones Attending Unavailable Lasha Jones Admitting Unavailable Jany Hoffman Primary Care Unavailable JANY HOFFMAN Attending Unavailable SHELLY GONZALEZ Attending Unavailable Luis Veliz Attending Unavailsia ble Problems Problem Classification Problem Date Documented Da [...] Anion gap [Moles/Vol] 13.9 mmol/L Normal 6.0-15.0 [facility] Comment on above: Performed By: #### B MP, CK, TSH3, PHOS, PTH, MG, ESR, [id number], CBC, CRP #### [facility] [address] Calcium [Mass/Vol] 10.1 mg/dL Normal 8.6-10.3 [facility] Comment on above: Performed By: #### B MP, CK, TSH3, PHOS, PTH, MG, ESR, [id number], CBC, CRP #### [facility] [address] Chloride [Moles/Vol] 103 mmol/L Normal 98-107 [facility] Comment on above: Performed By: #### B MP, CK, TSH3, PHOS, PTH, MG, ESR, [id number], CBC, CRP #### [facility] [address] CO2 [Moles/Vol] 29.0 mmol/L Normal 21.0-31.0 [facility] Comment on above: Performed By: #### B MP, CK, TSH3, PHOS, PTH, MG, ESR, [id number], CBC, CRP #### [facility] [address] Creatinine [Mass/Vol] 0.87 mg/dL Normal 0.60-1.20 [facility] Comment on above: Performed By: #### B MP, CK, TSH3, PHOS, PTH, MG, ESR, [id number], CBC, CRP #### [facility] [address] GFR/1.73 sq M.predicted MDRD (S/P/Bld) [Vol rate/Area] mL/min/{1.73_m2} Normal [facility] Comment on above: Performed By: #### B MP, CK, TSH3, PHOS, PTH, MG, ESR, [id number], CBC, CRP #### [facility] [address] Glucose [Mass/Vol] 103 mg/dL High 70-100 [facility] Comment on above: Result Comment: [facility] Glucose Reference Range is dependent on time and content of last meal. Glucose of more than 200 mg/dL in a nonstressed, ambulatory subject supports the diagnosis of Diabetes Mellitus. ADA recommended reference range Performed By: #### B MP, CK, TSH3, PHOS, PTH, MG, ESR, [id number], CBC, CRP #### [facility] [address] Potassium [Moles/Vol] 4.9 mmol/L Normal 3.5-5.1 [facility] Comment on above: Performed By: #### B MP, CK, TSH3, PHOS, PTH, MG, ESR, [id number], CBC, CRP #### [facility] [address] Sodium [Moles/Vol] 141 mmol/L Normal 136-145 [facility] Comment on above: Performed By: #### B MP, CK, TSH3, PHOS, PTH, MG, ESR, [id number], CBC, CRP #### [facility] [address] Urea nitrogen [Mass/Vol] 16 mg/dL Normal 7-25 [facility] Comment on above: Performed By: #### B MP, CK, TSH3, PHOS, PTH, MG, ESR, [id number], CBC, CRP #### [facility] [address] [place] [address] [place] Basophils Auto (Bld) [#/Vol] Ordered By: Lasha Jones on 02-19-2023 Basophils (Bld) [#/Vol] 0.1 10*3/uL 0.0-0.2 [facility] Basophils/100 WBC Auto (Bld) Ordered By: Lasha Jones on 02-19-2023 Basophils/100 WBC (Bld) 1.1 % . [facility] C reactive protein [Mass/vol ume] in Serum or PlasmaOrdered By: Lasha Jones on 02-19-2023 CRP [Mass/Vol] < 0.5 mg/dL 0.0-0.5 [facility] C-Reactive Proteinon 023 CRP [Mass/Vol] mg/L Normal 0.0-0.5 [facility] Comment on above: Performed By: #### B MP, CK, TSH3, PHOS, PTH, MG, ESR, [id number], CBC, CRP #### [facility] [address] Calcium [Mass/volume] in Ser um or PlasmaOrdered By: Lasha Jones on 02-19-2023 Calcium [Mass/Vol] 10.1 mg/dL 8.6-10.3 [facility] Carbon dioxide, total [Moles /volume] in Serum or PlasmaOrdered By: Lasha Jones on 02-19-2023 CO2 [Moles/Vol] 29.0 mmol/L 21.0-31.0 [facility] Chloride [Moles/volume] in S rosita or PlasmaOrdered By: Lasha Jones on 02-19-2023 Chloride [Moles/Vol] 103 mmol/L 98-107 [facility] Complete Blood Count Auto Di ffon 02-19-2023 Basophils (Bld) [#/Vol] 0.1 10*3/uL Normal 0.0-0.2 [facility] Comment on above: Performed By: #### B MP, CK, TSH3, PHOS, PTH, MG, ESR, [id number], CBC, CRP #### [facility] [address] [place] [id number] [place] Basophils/100 WBC (Bld) 1.1 % Normal . [facility] Comment on above: Performed By: #### B MP, CK, TSH3, PHOS, PTH, MG, ESR, [id number], CBC, CRP #### [address] Eosinophils (Bld) [#/Vol] 0.1 10*3/uL Normal 0.0-0.45 [facility] Comment on above: Performed By: #### B MP, CK, TSH3, PHOS, PTH, MG, ESR, [id number], CBC, CRP #### [facility] [address] Eosinophils/100 WBC (Bld) 1.9 % Normal . [facility] Comment on above: Performed By: #### B MP, CK, TSH3, PHOS, PTH, MG, ESR, [id number], CBC, CRP #### [address] Erythrocyte distribution width (RBC) [Ratio] 13.7 % Normal 11.9-15.3 [facility] Comment on above: Performed By: #### B MP, CK, TSH3, PHOS, PTH, MG, ESR, [id number], CBC, CRP #### [address] Hematocrit (Bld) [Volume fraction] 41.6 % Normal 34.0-46.4 [facility] Comment on above: Performed By: #### B MP, CK, TSH3, PHOS, PTH, MG, ESR, [id number], CBC, CRP #### [address] Hemoglobin (Bld) [Mass/Vol] 13.6 g/dL Normal 11.8-15.4 [facility] Comment on above: Performed By: #### B MP, CK, TSH3, PHOS, PTH, MG, ESR, [id number], CBC, CRP #### [address] Lymphocytes (Bld) [#/Vol] 1.9 10*3/uL Normal 1.00-4.8 [facility] Comment on above: Performed By: #### B MP, CK, TSH3, PHOS, PTH, MG, ESR, [id number], CBC, CRP #### [address] Lymphocytes/100 WBC (Bld) 35.6 % Normal . [facility] Comment on above: Performed By: #### B MP, CK, TSH3, PHOS, PTH, MG, ESR, [id number], CBC, CRP #### [address] MCH (RBC) [Entitic mass] 29.0 pg Normal 24.7-34.3 [facility] Comment on above: Performed By: #### B MP, CK, TSH3, PHOS, PTH, MG, ESR, [id number], CBC, CRP #### [address] MCV (RBC) [Entitic vol] 88.4 fL Normal 80-100 [facility] Comment on above: Performed By: #### B MP, CK, TSH3, PHOS, PTH, MG, ESR, [id number], CBC, CRP #### [address] Mean Corpuscular HGB Conc 32.8 g/dL Normal 32.0-35.0 [facility] Comment on above: Performed By: #### B MP, CK, TSH3, PHOS, PTH, MG, ESR, [id number], CBC, CRP #### [address] Monocytes (Bld) [#/Vol] 0.3 10*3/uL Normal 0.0-0.8 [facility] Comment on above: Performed By: #### B MP, CK, TSH3, PHOS, PTH, MG, ESR, [id number], CBC, CRP #### [address] Monocytes/100 WBC (Bld) 6.0 % Normal . [facility] Comment on above: Performed By: #### B MP, CK, TSH3, PHOS, PTH, MG, ESR, [id number], CBC, CRP #### [address] Neutrophils (Bld) [#/Vol] 3.0 10*3/uL Normal 1.8-7.7 [facility] Comment on above: Performed By: #### B MP, CK, TSH3, PHOS, PTH, MG, ESR, [id number], CBC, CRP #### [address] Neutrophils/100 WBC (Bld) 55.4 % Normal . [facility] Comment on above: Performed By: #### B MP, CK, TSH3, PHOS, PTH, MG, ESR, [id number], CBC, CRP #### [address] NRBC% 0.1 /100{WBC} Normal 0-0.5 [facility] Comment on above: Performed By: #### B MP, CK, TSH3, PHOS, PTH, MG, ESR, [id number], CBC, CRP #### [address] Platelet mean volume (Bld) [Entitic vol] 7.6 fL Normal 6.3-10.7 [facility] Comment on above: Performed By: #### B MP, CK, TSH3, PHOS, PTH, MG, ESR, [id number], CBC, CRP #### [address] Platelets (Bld) [#/Vol] 389 10*3/uL Normal 150-450 [facility] Comment on above: Performed By: #### B MP, CK, TSH3, PHOS, PTH, MG, ESR, [id number], CBC, CRP #### [address] RBC (Bld) [#/Vol] 4.70 10*6/uL Normal 3.60-5.00 [facility] Comment on above: Performed By: #### B MP, CK, TSH3, PHOS, PTH, MG, ESR, [id number], CBC, CRP #### [facility] [address] WBC (Bld) [#/Vol] 5.4 10*3/uL Normal 3.8-11.6 [facility] Comment on above: Performed By: #### B MP, CK, TSH3, PHOS, PTH, MG, ESR, [id number], CBC, CRP #### [facility] [address] [place] [id number] [facility] Creatine Kinaseon 02-19-2023 CK [Catalytic activity/Vol] 111 U/L Normal [facility] Comment on above: Result Comment: PERF ORMED BY: [place] [address] PATHOLOGIST ARCHITECTURAL MODELER JOSE BRITT M.D. Performed By: #### B MP, CK, TSH3, PHOS, PTH, MG, ESR, [id number], CBC, CRP #### [address] Creatine kinase [Enzymatic a ctivity/volume] in Serum or PlasmaOrdered By: Lasha Jones on 02-19-2023 CK [Catalytic activity/Vol] 111 U/L [facility] Creatinine [Mass/volume] in Serum or PlasmaOrdered By: Lasha Jones on 02-19-2023 Creatinine [Mass/Vol] 0.87 mg/dL 0.60-1.20 [facility] Eosinophils Auto (Bld) [#/Vo l]Ordered By: Lasha Jones on 02-19-2023 Eosinophils (Bld) [#/Vol] 0.1 10*3/uL 0.0-0.45 [facility] Eosinophils/100 WBC Auto (Bl d)Ordered By: Lasha Jones on 02-19-2023 Eosinophils/100 WBC (Bld) 1.9 % . [facility] Erythrocyte Sedimentation Ra ashley 02-19-2023 ESR (Bld) [Velocity] 27 mm/h Normal 0-29 [facility] Comment on above: Result Comment: PERF ORMED BY: [facility] [address] [place] [address] PATHOLOGIST ARCHITECTURAL MODELER JOSE BRITT M.D. Performed By: #### B MP, CK, TSH3, PHOS, PTH, MG, ESR, [id number], CBC, CRP #### [facility] [address] Erythrocyte distribution wid th Auto (RBC) [Ratio]Ordered By: Lasha Jones on 02-19-2023 Erythrocyte distribution width (RBC) [Ratio] 13.7 % 11.9-15.3 [facility] Erythrocyte sedimentation ra te by Photometric methodOrdered By: Lasha Jones on 02-19-2023 ESR Photometric method (Bld) [Velocity] 27 mm/hr 0-29 [facility] Glucose [Mass/volume] in Ser um or PlasmaOrdered By: Lasha Jones on 02-19-2023 Glucose [Mass/Vol] 103 mg/dL 70-100 [facility] Comment on above: ADA recommended refe rence rangeRandom Glucose Reference Range is dependent on time and content of last meal. Glucose of more than 200 mg/dL in a nonstressed, ambulatory subject supports the diagnosis of Diabetes Mellitus. Hematocrit Auto (Bld) [Volum e fraction]Ordered By: Lasha Jones on 02-19-2023 Hematocrit (Bld) [Volume fraction] 41.6 % 34.0-46.4 [facility] Hemoglobin [Mass/volume] in BloodOrdered By: Lasha Jones on 02-19-2023 Hemoglobin (Bld) [Mass/Vol] 13.6 g/dL 11.8-15.4 [facility] Leukocytes [#/volume] correc marley for nucleated erythrocytes in Blood by Automated counOrdered By: Lasha Jones on 02-19-2023 WBC corrected for nucl RBC Auto (Bld) [#/Vol] 5.4 10*3/uL 3.8-11.6 [facility] Lymphocytes Auto (Bld) [#/Vo l]Ordered By: Lasha Jones on 02-19-2023 Lymphocytes (Bld) [#/Vol] 1.9 10*3/uL 1.00-4.8 [facility] Lymphocytes/100 WBC Auto (Bl d)Ordered By: Lasha Jones on 02-19-2023 Lymphocytes/100 WBC (Bld) 35.6 % . [facility] MCH Auto (RBC) [Entitic mass ]Ordered By: Lasha Jones on 02-19-2023 MCH (RBC) [Entitic mass] 29.0 pg 24.7-34.3 [facility] MCHC Auto (RBC) [Mass/Vol]Or dered By: Lasha Jones on 02-19-2023 MCHC (RBC) [Mass/Vol] 32.8 g/dL 32.0-35.0 [facility] MCV Auto (RBC) [Entitic vol] Ordered By: Lasha Jones on 02-19-2023 MCV (RBC) [Entitic vol] 88.4 fL 80-100 [facility] Magnesiumon 02-19-2023 Magnesium [Mass/Vol] 2.3 mg/dL Normal 1.9-2.7 [facility] Comment on above: Performed By: #### B MP, CK, TSH3, PHOS, PTH, MG, ESR, [id number], CBC, CRP #### [facility] [address] Magnesium [Mass/volume] in S rosita or PlasmaOrdered By: Lasha Jones on 02-19-2023 Magnesium [Mass/Vol] 2.3 mg/dL 1.9-2.7 [facility] Monocytes Auto (Bld) [#/Vol] Ordered By: Lasha Jones on 02-19-2023 Monocytes (Bld) [#/Vol] 0.3 10*3/uL 0.0-0.8 [facility] Monocytes/100 WBC Auto (Bld) Ordered By: Lasha Jones on 02-19-2023 Monocytes/100 WBC (Bld) 6.0 % . [facility] Neutrophils Auto (Bld) [#/Vo l]Ordered By: Lasha Jones on 02-19-2023 Neutrophils (Bld) [#/Vol] 3.0 10*3/uL 1.8-7.7 [facility] Neutrophils/100 WBC Auto (Bl d)Ordered By: Lasha Jones on 02-19-2023 Neutrophils/100 WBC (Bld) 55.4 % . [facility] No Panel InformationOrdered By: Lasha Jones on 02-19-2023 Estimated GFR (CKD-EPI) > 60.0 mL/Min [facility] Creatinine Clearance (Chem N/A [facility] Nucleated erythrocytes [Pres ence] in Blood by Automated countOrdered By: Lasha Jones on 02-19-2023 Nucleated RBC Auto Ql (Bld) 0.1 /100{WBC} 0-0.5 [facility] Parathyrin.intact [Mass/volu me] in Serum or PlasmaOrdered By: Lasha Jones on 02-19-2023 Parathyrin.intact [Mass/Vol] 47.1 pg/mL [facility] Parathyroid Hormone Intacton 02-19-2023 Parathyroid Hormone Intact 47.1 pg/mL Normal [facility] Comment on above: Result Comment: PERF ORMED BY: [address] [place] [address] PATHOLOGIST ARCHITECTURAL MODELER JOSE BRITT M.D. Performed By: #### B MP, CK, TSH3, PHOS, PTH, MG, ESR, [id number], CBC, CRP #### [facility] [address] [place] [address] Phosphate [Mass/volume] in S rosita or PlasmaOrdered By: Lasha Jones on 02-19-2023 Phosphate [Mass/Vol] 4.1 mg/dL 3.7-7.2 [facility] Phosphoruson 02-19-2023 Phosphate [Mass/Vol] 4.1 mg/dL Normal 3.7-7.2 [facility] Comment on above: Performed By: #### B MP, CK, TSH3, PHOS, PTH, MG, ESR, [id number], CBC, CRP #### [facility] [address] [place] [address] Platelet mean volume Auto (B ld) [Entitic vol]Ordered By: Lasha Jones on 02-19-2023 Platelet mean volume (Bld) [Entitic vol] 7.6 fL 6.3-10.7 [facility] Platelets Auto (Bld) [#/Vol] Ordered By: Lasha Jones on 02-19-2023 Platelets (Bld) [#/Vol] 389 10*3/uL 150-450 [facility] Potassium [Moles/volume] in Serum or PlasmaOrdered By: Lasha Jones on 02-19-2023 Potassium [Moles/Vol] 4.9 mmol/L 3.5-5.1 [facility] RBC Auto (Bld) [#/Vol]Ordere d By: Lasha Jones on 02-19-2023 RBC (Bld) [#/Vol] 4.70 10*6/uL 3.60-5.00 [facility] Serum or plasma anion gap de terminationOrdered By: Lasha Jones on 02-19-2023 Anion gap [Moles/Vol] 13.9 mmol/L 6.0-15.0 [facility] Sodium [Moles/volume] in Ser um or PlasmaOrdered By: Lasha Jones on 02-19-2023 Sodium [Moles/Vol] 141 mmol/L 136-145 [facility] Thyroid Stimulating Hormoneo n 02-19-2023 TSH Qn 1.74 m[IU]/L Normal 0.45-5.33 [facility] Comment on above: Performed By: #### B MP, CK, TSH3, PHOS, PTH, MG, ESR, [id number], CBC, CRP #### [address] Thyrotropin [Units/volume] i n Serum or PlasmaOrdered By: Lasha Jones on 02-19-2023 TSH Qn 1.74 m[IU]/L 0.45-5.33 [facility] Urea nitrogen [Mass/volume] in Serum or PlasmaOrdered By: Lasha Jones on 02-19-2023 Urea nitrogen [Mass/Vol] 16 mg/dL 7-25 [facility] Vitamin D 25 Hydroxy Totalon 02-19-2023 Vitamin D 25 Hydroxy Total 64.0 ng/mL Normal 30-100 [facility] Comment on above: Result Comment: JADE MIN D STATUS 25(OH)VITAMIN D RANGE (ng/mL) Deficient <20 Insufficient 20 to <30 Sufficient 30 to 100 Reference: Courtney Durand, Archana DURAN, et al. Evaluation,treatment, and prevention of vitamin D deficiency; an Endocrine Society clinical practice guideline. JCEM. 2010; 96(7):191-. PERFORMED BY: [facility] [address] [place] [address] PATHOLOGIST ARCHITECTURAL MODELER JOSE BRITT M.D. Performed By: #### B MP, CK, TSH3, PHOS, PTH, MG, ESR, [id number], CBC, CRP #### [address] Vitamin D+Metabolites [Mass/ volume] in Serum or PlasmaOrdered By: Lasha Jones on 02-19-2023 Vitamin D+Metabolites [Mass/Vol] 64.0 ng/mL 30-100 [facility] Comment on above: VITAMIN D STATUS 25( OH)VITAMIN D RANGE (ng/mL) Deficient <20 Insufficient 20 to <30Sufficient 30 to 100Reference: Courtney Durand, Archana DURAN, et al. Evaluation,treatment, and prevention of vitamin D deficiency; an Endocrine Society clinical practice guideline. JCEM. 2010; 96(7):1911-30. 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 Order #: [id number] CLICK HERE TO VIEW EXAM RADIOLOGY REPORT [...] lung cancer at age 68. LOCATION: [facility] BREAST COMPOSITION: Heterogeneously dense,which may obscure [...] Randall MD on 01/08/2022 at 11:04 Normal [facility] C-Reactive Proteinon 022 CRP IV <0.3 Normal [facility] Comment on above: Performed By: #### T SH, CMP, CRP, ESR, CK, CBCAD #### [facility] [address] [place], [place] [id number] Complete Blood Count with Au to Diffon 09-10-2021 Basophils (Bld) [#/Vol] 0.08 10*3/uL Normal 0.00-0.[address] [facility] Specialist Comment on above: Performed By: #### T SH, CMP, CRP, ESR, CK, CBCAD #### [facility] [address] [place], [place] [id number] Basophils/100 WBC (Bld) 1.0 % Normal N [facility] Comment on above: Performed By: #### T SH, CMP, CRP, ESR, CK, CBCAD #### [facility] [address] [place], [place] [id number] Eosinophils (Bld) [#/Vol] 0.19 10*3/uL Normal 0.02-0.[address] [facility] Special[facility] Comment on above: Performed By: #### T SH, CMP, CRP, ESR, CK, CBCAD #### [facility] [address] [place], [place] [id number] Eosinophils/100 WBC (Bld) 2.4 % Normal [facility] Comment on above: Performed By: #### T SH, CMP, CRP, ESR, CK, CBCAD #### [facility] [address] [place], [place] [id number] Erythrocyte distribution width (RBC) [Ratio] 14.3 % Normal 11.0-15.0 [facility] Comment on above: Performed By: #### T SH, CMP, CRP, ESR, CK, CBCAD #### [facility] [address] [place], [place] [id number] Hematocrit (Bld) [Volume fraction] 43.5 % Normal 35.0-47.[address] [facility] Special[facility] Comment on above: Performed By: #### T SH, CMP, CRP, ESR, CK, CBCAD #### [facility] [address] [place], [place] [id number] Hemoglobin (Bld) [Mass/Vol] 13.9 g/dL Normal 11.6-15.[address] [facility] Special[facility] Comment on above: Performed By: #### T SH, CMP, CRP, ESR, CK, CBCAD #### [facility] [address] [place], [place] [id number] Lymphocytes (Bld) [#/Vol] 2.6 10*3/uL Normal 0.9-3.9 [facility] Comment on above: Performed By: #### T SH, CMP, CRP, ESR, CK, CBCAD #### [facility] [address] [place], [place] [id number] Lymphocytes/100 WBC (Bld) 33.2 % Normal [facility] Comment on above: Performed By: #### T SH, CMP, CRP, ESR, CK, CBCAD #### [facility] [address] [place], [place] [id number] MCH (RBC) [Entitic mass] 28.8 pg Normal 27.0-33.0 [facility] Comment on above: Performed By: #### T SH, CMP, CRP, ESR, CK, CBCAD #### [facility] [address] [place], [place] [id number] MCHC (RBC) [Mass/Vol] 32.0 g/dL Normal 32.0-36.0 [facility] Comment on above: Performed By: #### T SH, CMP, CRP, ESR, CK, CBCAD #### [facility] [address] [place], [place] [id number] MCV (RBC) [Entitic vol] 90 fL Normal 80-100 [facility] Comment on above: Performed By: #### T SH, CMP, CRP, ESR, CK, CBCAD #### [facility] [address] [place], [place] [id number] Monocytes (Bld) [#/Vol] 0.5 10*3/uL Normal 0.2-0.9 [facility] Comment on above: Performed By: #### T SH, CMP, CRP, ESR, CK, CBCAD #### [facility] [address] [place], [place] [id number] Monocytes/100 WBC (Bld) 6.9 % Normal N [facility] Comment on above: Performed By: #### T SH, CMP, CRP, ESR, CK, CBCAD #### [facility] [address] [place], [place] [id number] Neutrophils (Bld) [#/Vol] 4.4 10*3/uL Normal 1.5-7.8 [facility] Comment on above: Performed By: #### T SH, CMP, CRP, ESR, CK, CBCAD #### [facility] [address] [place], [place] [id number] Neutrophils/100 WBC (Bld) 56.2 % Normal [facility] Comment on above: Performed By: #### T SH, CMP, CRP, ESR, CK, CBCAD #### [facility] [address] [place], [place] [id number] Platelet mean volume (Bld) [Entitic vol] 9.50 fL Normal 7.50-12.50 [facility] Comment on above: Performed By: #### T SH, CMP, CRP, ESR, CK, CBCAD #### [facility] [address] [place], [place] [id number] Platelets (Bld) [#/Vol] 427 10*3/uL High 140-[address] [facility] Specialist Comment on above: Performed By: #### T SH, CMP, CRP, ESR, CK, CBCAD #### [facility] [address] [place], [place] [id number] RBC (Bld) [#/Vol] 4.83 10*6/uL Normal 3.90-5.20 [facility] Specialist Comment on above: Performed By: #### T SH, CMP, CRP, ESR, CK, CBCAD #### [facility] [address] [place], [place] [id number] RDW-SD 47.3 fL Normal 37.0-50.[address] [facility] Comment on above: Performed By: #### T SH, CMP, CRP, ESR, CK, CBCAD #### [facility] [address] [place], [place] [id number] WBC (Bld) [#/Vol] 7.9 10*3/uL Normal 3.8-11.0 [place] Comment on above: Performed By: #### T SH, CMP, CRP, ESR, CK, CBCAD #### [facility] [address] [place], [place] [id number] Comprehensive Metabolic Pane taiwo 04-11-2022 Albumin [Mass/Vol] 5.2 g/dL High 3.6-5.1 [place] Comment on above: Performed By: #### T SH, CMP, CRP, ESR, CK, CBCAD #### [facility] [address] [place], [place] [id number] Albumin/Globulin [Mass ratio] 2.4 {ratio} Normal 1.0-2.[address] [facility] Comment on above: Performed By: #### T SH, CMP, CRP, ESR, CK, CBCAD #### [facility] [address] [place], [place] [id number] ALP [Catalytic activity/Vol] 115 U/L Normal 35-[address] [facility] Special[facility] Comment on above: Performed By: #### T SH, CMP, CRP, ESR, CK, CBCAD #### [facility] [address] [place], [place] [id number] ALT [Catalytic activity/Vol] 18 U/L Normal 6-[address] [facility] Comment on above: Result Comment: 05/02 Female reference range changed. Performed By: #### T SH, CMP, CRP, ESR, CK, CBCAD #### [facility] [address] [place], [place] [id number] Anion gap [Moles/Vol] 20 mmol/L Normal 12-20 [facility] [facility] Comment on above: Result Comment: Effe ctive 06/07/2019 reference range changed. Performed By: #### T SH, CMP, CRP, ESR, CK, CBCAD #### [facility] [address], [place] [id number] AST [Catalytic activity/Vol] 24 U/L Normal 9-[address] [facility] Specialist Comment on above: Performed By: #### T SH, CMP, CRP, ESR, CK, CBCAD #### [facility] [address], [place] [id number] Bilirubin [Mass/Vol] 0.36 mg/dL Normal 0.30-1.20 [facility] Specialist Comment on above: Performed By: #### T SH, CMP, CRP, ESR, CK, CBCAD #### [facility] [address], [place] [id number] BUN/CREA 23 Ratio High 6-22 [facility] Comment on above: Performed By: #### T SH, CMP, CRP, ESR, CK, CBCAD #### [facility] [address], [place] [id number] Calcium [Mass/Vol] 10.3 mg/dL High 8.6-10.2 [place] Comment on above: Performed By: #### T SH, CMP, CRP, ESR, CK, CBCAD #### [facility] [address], [place] [id number] Chloride [Moles/Vol] 104 mmol/L Normal 98-107 [facility] Comment on above: Performed By: #### T SH, CMP, CRP, ESR, CK, CBCAD #### [facility] [address], [place] [id number] CO2 [Moles/Vol] 23 mmol/L Normal 20-31 [facility] Comment on above: Performed By: #### T SH, CMP, CRP, ESR, CK, CBCAD #### [facility] [address], [place] [id number] Creatinine [Mass/Vol] 0.8 mg/dL Normal 0.6-1.4 [facility] Comment on above: Performed By: #### T SH, CMP, CRP, ESR, CK, CBCAD #### [facility] [address], [place] [id number] eGFRAA 97 mL/min/1.73m2 Normal >60 [facility] Comment on above: Performed By: #### T SH, CMP, CRP, ESR, CK, CBCAD #### [facility] [address], [place] [id number] eGFRNAA 80 mL/min/1.73m2 Normal >60 [facility] Comment on above: Performed By: #### T SH, CMP, CRP, ESR, CK, CBCAD #### [facility] [address], [place] [id number] Globulin (S) [Mass/Vol] 2.2 g/dL Normal 1.9-3.7 [facility] [place] [facility] Comment on above: Performed By: #### T SH, CMP, CRP, ESR, CK, CBCAD #### [facility] [address], [place] [id number] Glucose [Mass/Vol] 90 mg/dL Normal 65-99 [place] [place] [facility] Comment on above: Result Comment: For FASTING Glucose --- ADA reference ranges: Normal 65-99 mg/dl Prediabetes 100-125 Diabetes >/= 126 Performed By: #### T SH, CMP, CRP, ESR, CK, CBCAD #### [facility] [address], [place] [id number] Potassium [Moles/Vol] 4.3 mmol/L Normal 3.5-5.5 [facility] Comment on above: Performed By: #### T SH, CMP, CRP, ESR, CK, CBCAD #### [facility] [address], [place] [id number] Protein [Mass/Vol] 7.4 g/dL Normal 6.1-8.1 [place] [facility] Comment on above: Performed By: #### T SH, CMP, CRP, ESR, CK, CBCAD #### [facility] [address], [place] [id number] Sodium [Moles/Vol] 143 mmol/L Normal 135-146 [facility] Comment on above: Performed By: #### T SH, CMP, CRP, ESR, CK, CBCAD #### [facility] [address], [place] [id number] Urea nitrogen [Mass/Vol] 18 mg/dL Normal 7-25 [facility] Comment on above: Performed By: #### T SH, CMP, CRP, ESR, CK, CBCAD #### [facility] [address] [facility] [place] [id number] Creatine Kinaseon 09-10-2021 CK [Catalytic activity/Vol] 72 U/L Normal 26-[address] [facility] Specialist Comment on above: Performed By: #### T SH, CMP, CRP, ESR, CK, CBCAD #### [facility] [address] [facility] [place] [id number] Hemoglobin A1Con 09-10-2021 EAG 114.02 Normal [facility] Comment on above: Performed By: #### A 1C #### [facility] [address] [place], [place] [id number] HbA1c (Bld) [Mass fraction] 5.6 % Normal 4.0-6.0 [facility] Comment on above: Performed By: #### A 1C #### [facility] [address] [place], [place] [id number] Q - MARINE MULTIPLEX W/ REFLEX TO 11 ANTIBODY CASCADEon 09-10-2021 ANACHOICE(R) SCREEN Negative Normal NEGATIVE [facility] Comment on above: Order Comment: [facility] performed at: [employer], [email or web address] [facility], [address] [place] [address], [address] [place] [address], [id number], Shuttle [employer]itting Supervisor: Lisandro Layton MD [facility] Collection Date/Time: [facility] Results Received Date/Time: [facility] Reported Date/Time: Result Comment: A ne gative MARINE Multiplex, with Reflex to 11 Antibody Grandin indicates the absence of detectable antibodies to component analytes consisting of double stranded DNA (dsDNA), chromatin, ribonucleoprotein (AUTISTIC TEACHER), Alexander/AUTISTIC TEACHER (Sm/AUTISTIC TEACHER), Alexander (Sm), SS-A, SS-B, Ashley-1, centromere B, Scl-70 and ribosomal P. A negative result should be interpreted in the context of the clinical and laboratory findings and does not rule out autoimmune disease characterized by other autoantibody specificities such as rheumatoid arthritis, autoimmune hepatitis, primary biliary cirrhosis, autoimmune thyroiditis, Kensington's disease, pernicious anemia, autoimmune neuropathies, vasculitis, celiac disease, and bullous disease. For additional information, please refer to http://education.Persado.YooDeal/faq/JNP154 (This link is being provided for informational/ educational purposes only.) Performed By: #### 1 9946, 6646 #### [facility] [address] [place] [address] Q - LYME DISEASE AB screen W /REFLEX TO IgG IgMon 09-10-2021 LYME AB SCREEN <0.90 Normal [facility] Comment on above: Order Comment: [facility] performed at: [facility], [employer] [facility], [address], [address] [facility], [place], [address], Sh[employer] Fitting Supervisor: Lisandro Layton MD [facility] Date/Time: [facility] Results Received Date/Time: [id number] [facility] Reported Date/Time: Result Comment: Inde x [...] 9946, 6646 #### [facility] [address] [place] [address] RBC Sedimentation Rateon ESR (Bld) [Velocity] 37.00 mm/h High 0.00-30.00 [facility] Comment on above: Performed By: #### T SH, CMP, CRP, ESR, CK, CBCAD #### [facility] [address], [place] [id number] TSHon 09-10-2021 TSH 2.500 uIU/mL Normal 0.400-4.500 [facility] Comment on above: Performed By: #### T SH, CMP, CRP, ESR, CK, CBCAD #### [facility] [address], [place] [id number] Vitamin B12on 09-10-2021 Cobalamin (Vitamin B12) [Mass/Vol] 1113 pg/mL High 211-946 [facility] Comment on above: Performed By: #### B 12 #### [facility] [address], [place] [id number] [address] CARDIAC SCORINGon 10-31 CT CARDIAC SCORING Addendum Begins Patient Name: [...] REGURG TRICUSPID REGURG. COMPARISON: None. ACCESSION NUMBER(S): [id number] ORDERING CLINICIAN: NAOMI PADILLA TECHNIQUE: Using prospective [...] coronary heart disease events. According to the [place] [employer] [employer] Clinical Expert Consensus [...] modify other non-lipid coronary risk factors. Reference: [place] P et al. Circulation. 2007; 115:402-426 Reading Database Administration Manager: Dr. Benoit Gu, Date: 11/10/2018 6:46 pm Electronically signed by: OSMAN SAGE MD [facility] Encounters Encounter Date Encounter Type Care Provider Facility Start: 02-16-2024 ambulatory Luis Veliz Facility:[facility] Start: 01-20-2024 ambulatory Luis Veliz Facili ty:[facility] Start: 01-08-2024 End: 01-08-2024 ambulatory SHELLY GONZALEZ Not Available Start: 08-26-2023 End: 08-26-2023 ambulatory JANY HOFFMAN Not Available Start: 02-19-2023 End: 02-19-2023 ambulatory Lasha Jones Facility:[facility] Start: 02-19-2023 End: 02-19-2023 ambulatory MD Jany Hoffman Work Phone: [facility] Work Phone: Start: 02-19-2023 End: 02-19-2023 Patient encounter procedure MD Jany Hoffman Work Phone: [facility] [address] Work Phone: Start: 03-05-2022 End: 03-06-[address] JANY HOFFMAN Facility:[facility] Start: 01-08-2022 End: 01-09-[address] RICKIE RANDALL Facility:[facility] Procedures Date Procedure Procedure Detail Performing Clinician Start: 10-27-2018 Echocardiography Immunizations Immunization Date Immunization Notes Care Provider Fa cility 01-07-2020 tetanus toxoid, redu lorene diphtheria toxoid, and acellular pertussis vaccine, adsorbed MD Jany Hoffman Work Phone: [facility] Payers Date Payer Category Payer Self-pay [id number] 1965 Unknown [id number] 2.16.84 [id number] 1965 Unknown [id number] 2.16.84 [id number] 1965 Unknown [id number] 2.16.84 [id number] 1965 Unknown [id number] 2.16.84 [id number] 1965 Unknown [id number] 2.16.8 [id number] 1959 Medicare [id number] Unknown [employer] [id number] Unknown [id number] 2.16.8 [id number] Social History Date Type Detail Facility Start: 01-07-2020 [facility] Start: 1965 Sex Assigned At Female F [facility] Evaluation note Note Date & Type Note Facility Evaluation note No assessment information availa [facility] Work Phone: Summary Purpose Family History No Family History Records Found Relationship Condition Age at Onset Recorded Date/T mary ann father Malignant neoplasm Unknown Advance Directives No Advanced Directives Records Found Advance Directive Response Recorded Date/ Time Advance Directives No March 12, 2018 11:49am Additional Source Comments INFORMATION SOURCE (unrecogn ized section and content) DATE CREATED AUTHOR 11/11/2018 [facility] DATE CREATED AUTHOR AUTHOR'S ORGANIZ ATION 09/11/2021 [facility] Me dical Specialist DATE CREATED AUTHOR AUTHOR'S ORGANIZ ATION 03/08/2022 [facility] DATE CREATED AUTHOR AUTHOR'S ORGANIZ ATION 03/04/2023 [facility] DATE CREATED AUTHOR AUTHOR'S ORGANIZ ATION 01/10/2024 [facility] DATE CREATED AUTHOR AUTHOR'S ORGANIZ ATION 01/22/2024 [facility] Care Teams (unrecognized sec tion and content) [...] BE BASED ON THE PRIMARY CLINICAL RECORDS. [facility] [employer] provides no warranty or guarantee of the accuracy or completeness of information in this document.
== END 2024-02-04 12:31 | disposition home or self-care (01) ==
PROVIDERS: PCP Family Medicine
DX: R10.84 Generalized abdominal pain (principal); R63.4 Abnormal weight loss
CPT/HCPCS: 74177; Q9967

== ENCOUNTER 2024-03-08 09:48 | Outpatient (OUT) | payer MEDICARE, SELFPAY ==
--- NOTE | 2024-03-08 09:59 | XR_ITS ---
The [address] [address] Patient Name: CATHERINE LO MRN: [id number] date: 1965 Sex: F Assigned Patient [facility] Current Patient Location: [facility] Accession/Order Number: [id number] Exam Date: 03/08/2024 10:03 Report Date: 03/08/2024 11:17 At the request of: SHANTA HOFFMAN Procedure: XR DEXA axial skeleton EXAMINATION: XR DEXA axial skeleton, 03/08/2024 10:03 AM EDT HISTORY: Estrogen Deficiency E28.39 COMPARISON: 2021, 2019, 2017 TECHNIQUE: Dual-energy X-ray absorptiometry (DEXA) bone density study performed for the axial skeleton. FINDINGS: Bone mineral density AP spine L1-L4 measures 0.863 g/sq cm for T score -2.6. Osteoporosis Bone mineral density of the bilateral femurs measures 0.75 g/sq cm for T score -1.8. Osteopenia XR/XR DEXA axial skeleton IMPRESSION: Osteoporosis 10 year fracture risk not reported because T score at or below -2.5 Pharmacologic treatment recommendations * No uniform recommendation applies to all patients. Management plans must be individualized. * Consider initiating pharmacologic treatment in postmenopausal women and men >= 50 years of age who have the following: Primary fracture prevention: * T-score <= - 2.5 at the femoral neck, total hip, lumbar spine, 33% radius (some uncertainty with existing data) by DXA. * Low bone mass (osteopenia: T-score between - 1.0 and - 2.5) at the femoral neck or total hip by DXA with a 10-year hip fracture risk >= 3% or a 10-year major osteoporosis-related fracture risk >= 20% (i.e., clinical vertebral, hip, forearm, or proximal humerus) based on the [place]-adapted FRAXregistered model. Secondary fracture prevention: * Fracture of the hip or vertebra regardless of BMD [4, 5]. * Fracture of proximal humerus, pelvis, or distal forearm in persons with low bone mass (osteopenia: T-score between - 1.0 and - 2.5). The decision to treat should be individualized in persons with a fracture of the proximal humerus, pelvis, or distal forearm who do not have osteopenia or low BMD [12, 13]. Mahamed MS, Niels SL, Fabian KL, Adelaida EM, Willie KG, AJ, Michael ES. The clinician's guide to prevention and treatment of osteoporosis. Osteoporos Int. 2021;33(10):2310-5730. doi: 10.1007/r73270-590-10279-m. Epub 2021Sep 27. Erratum in: Osteoporos Int. 2021Dec 27;: PMID: 30876760; PMCID: [id number]. Electronically authenticated by: RICKIE RANDALL Date: 03/08/2024 11:17
== END 2024-03-08 09:49 | disposition home or self-care (01) ==
LOC: RAD 09:49
PROVIDERS: PCP Family Medicine; Visit Provider Family Medicine
DX: E28.39 Other primary ovarian failure (principal); M81.0 Age-related osteoporosis without current pathological fracture
CPT/HCPCS: 77080

== ENCOUNTER 2024-04-11 10:11 | Outpatient (REF) | payer MEDICARE, SELFPAY ==
--- OUTSIDE RECORDS SUMMARY | 2024-04-11 10:15 | XMS_ITS | CCD ---
Author Organization [facility] Care Team Providers Care Clinical Assessment Manager Name Role Phone DALTON, DR WOMACK Attending Unavailable DALTON, DR WOMACK Consulting Unavailable DALTON, DR WOMACK Primary Care Unavailable DALTON, DR WOMACK Admitting Unavailable Zieber, DR Yu Consulting Unavailable WEST, DR RICKIE Alas Consulting Unavailable SEAN ELIZABETH Attending Unavailable SEAN ELIZABETH Admitting Unavailable DALTON, DR WOMACK Primary Care Unavailable SEAN ELIZABETH Consulting Unavailable MD Jany Hoffman Primary Care Provider [phone] MD Lasha Jones Attending Provider [phone] Lasha Jones Attending Unavailable Lasha Jones Admitting Unavailable Dalton, Rugen M Primary Care Unavailable DALTON RUGZANA M Attending Unavailable SHELLY GONZALEZ Attending Unavailable LUCRETIA CASPER Admitting Unavailable LUCRETIA CASPER Attending Unavailable HEMSHELLY JACOB M Primary Care Unavailable HEMCECIL SHELLY Primary Care Unavailable Luis Veliz Attending Unavaila ble PHYSICIAN, UNKNOWN Referring Unavailable DALTON, RUGEN M Primary Care Unavailable KATHIE HOPPER Referring Unavailable DALTON, RUGEN M Primary Care Unavailable DALTON, RUGEN M Referring Unavailable DALTON, RUGEN M Primary Care Unavailable DALTON, RUGEN M Referring Unavailable DALTON, RUGEN M Primary Care Unavailable PHYSICIAN, UNKNOWN Referring Unavailable DALTON, RUGEN M Primary Care Unavailable [place] Jany DAVIDSON Primary Care Provider Medications Current Medications Medication Drug Class(es) Dates Sig (Normalized) Sig (Original) bacillus coagulans [id number] unt / inulin 250 mg oral capsule (1 source) Bacillus coagulans-Inulin 1 billion-250 cell-mg cap Take by mouth as directed. Active budesonide 3 mg delayed release oral capsule (1 source) Corticosteroid Start: 04-07-2024 End: 06-06-2024 budesonide, enteric coated (ENTOCORT EC) 3 mg 24 hr capsule Take 1 capsule by mouth once daily. Take 3 tabs daily x 6 weeks (9mg), 2 tabs daily x 2 weeks (6mg), total 8 week course 154 capsule 04/07/2024 06/06/2024 Active diazePAM 5 mg oral tablet (1 source) Benzodiazepine Start: 08-26-2023 diazePAM (VALIUM) 5 mg tablet Take 5 mg by mouth. 08/26/2023 Active enteric contrast (will be provided with radiology test) (1 source) Start: 04-07-2024 enteric contrast (will be provided with radiology test) For CT ENTEROGRAPHY W IVCON order Administer, As Directed One Time Only, via Oral, Rectal, both Oral and Rectal, Enteric Tube, Stoma or Indwelling Catheter, Enteric Contrast as designated per enteric contrast guidelines. 1 Each 04/07/2024 Active iv contrast (will be provided with radiology test) (1 source) Start: 04-07-2024 iv contrast (will be provided with radiology test) CT Enterography W Inject, intravenously, once for 1 dose.No IV access, insert saline lock prior to the beginning of sedation, infusion, injection of imaging exam. Discontinue saline lock post exam. If Pt. has a central line or IVAD, may access for administration according to line specific nursing protocol. Once exam is complete flush line and de-access according to line specific nursing protocol in the CT contrast administration guidelines link. 1 Each 04/07/2024 Active magnesium lactate 84 mg extended release oral tablet (1 source) take 1 tablet by mouth once daily magnesium lactate ER (MAGTAB) 84 mg TbER Take 1 tablet by mouth once daily. Active melatonin 10 mg extended release oral tablet (1 source) Start: 10-02-2020 melatonin 10 mg TbER Take 10 mg by mouth. 10/02/2020 Active meloxicam 7.5 mg oral tablet (1 source) Nonsteroidal Anti-inflammatory Drug take 1 tablet by mouth once daily meloxicam (MOBIC) 7.5 mg tablet Take 1 tablet by mouth once daily. Active metoclopramide 5 mg oral tablet (1 source) Dopamine-2 Receptor Antagonist Start: 03-30-2024 take 1 tablet by mouth once daily 30 minutes before bedtime metoclopramide HCl (REGLAN) 5 mg tablet TAKE 1 TABLET BY MOUTH 30 MINUTES BEFORE MEALS AND EVERY NIGHT AT BEDTIME 03/30/2024 Active SUMAtriptan 25 mg oral tablet (1 source) Serotonin-1b and Serotonin-1d Receptor Agonist SUMAtriptan (IMITREX) 25 mg tablet Take 25 mg by mouth. Active Problems Active Problems Problem Classification Problem Date Documented Da te Episodic/Chronic Abdominal pain (2 sources) Generalized abdominal pain; Translations: [Epigastric pain] Onset: 02-10-2024 04-07-2024 Episodic Anxiety disorders (1 source) Anxiety; Translations: [Anxiety disorder, unspecified] Onset: 04-06-2024 04-06-2024 Chronic Disorders of lipid metabolism (1 source) Pure hypercholesterolemi a; Translations: [Pure hypercholesterolemi a, unspecified] Onset: 04-13-2019 04-06-2024 Chronic Esophageal disorders (2 sources) Gastro-esophageal reflux disease without esophagitis; Translations: [Laryngopharyngeal reflux] Onset: 12-22-2017 04-06-2024 Chronic Headache; including migraine (1 source) Migraine; Translations: [Migraine, unspecified, not intractable, without status migrainosus] Onset: 05-29-2011 04-06-2024 Chronic Heart valve disorders (1 source) Tricuspid incompetence, non-rheumatic ; Translations: [Nonrheumatic tricuspid (valve) insufficiency] Onset: 12-07-2018 04-06-2024 Chronic Menopausal disorders (7 sources) Other primary ovarian failure; Translations: [Decreased estrogen level] Onset: 03-05-2022 Chronic Miscellaneous mental health disorders (1 source) Primary insomnia; Translations: [Primary insomnia] Onset: 12-07-2018 04-06-2024 Chronic Mood disorders (1 source) Depressive disorder; Translations: [Depression] Onset: 04-06-2024 04-06-2024 Chronic Open wounds of head; neck; and trunk (1 source) Puncture wound of abdominal wall without foreign body, unspecified quadrant without penetration into peritoneal cavity, initial encounter; Translations: [Puncture wound of abdominal wall] 01-07-2020 Episodic Osteoporosis (1 source) Age-related osteoporosis without current pathological fracture; Translations: [Age-related osteoporosis without current pathological fracture] Onset: 02-19-2023 Chronic Other and ill-defined cerebrovascular disease (1 source) Cerebral ischemia; Translations: [Cerebral ischemia] Onset: 07-29-2018 04-06-2024 Chronic Other bone disease and musculoskeletal deformities (1 source) Other specified disorders of bone density and structure, unspecified site; Translations: [OTH D/O BONE DEN STRUCT UNS SITE] Onset: 03-07-2022 Episodic Other gastrointestinal disorders (1 source) Other specified symptoms and signs involving the digestive system and abdomen; Translations: [Other specified symptoms and signs involving the digestive system and abdomen] Onset: 03-29-2024 Episodic Other gastrointestinal disorders (2 sources) Diarrhea; Translations: [Diarrhea, unspecified] Onset: 04-06-2024 04-07-2024 Episodic Other hereditary and degenerative nervous system conditions (1 source) Restless legs; Translations: [Restless legs syndrome] Onset: 12-07-2018 04-06-2024 Chronic Other nervous system disorders (1 source) Neuropathy; Translations: [Polyneuropathy, unspecified] Onset: 12-07-2018 04-06-2024 Chronic Other nervous system disorders (1 source) Disorder of muscle; Translations: [Myopathy, unspecified] Onset: 04-03-2023 04-06-2024 Chronic Other nutritional; endocrine; and metabolic disorders (1 source) Abnormal weight loss; Translations: [Abnormal weight loss] Onset: 02-10-2024 Episodic Other nutritional; endocrine; and metabolic disorders (1 source) Weight loss; Translations: [Abnormal weight loss] 04-07-2024 Episodic Other screening for suspected conditions (not [...] HX MALIGNANT NEOPLASM OVARY] Onset: 01-09-2022 Episodic Residual codes; unclassified (1 source) Early satiety; Translations: [Early satiety] Onset: 03-29-2024 Episodic Past or Other Problems Problem Classification Problem Date Documented Da te Episodic/Chronic Cardiac dysrhythmias (1 source) Palpitations; Translations: [Palpitations] Onset: 08-30-2015 04-06-2024 Episodic Diabetes mellitus without complication (1 source) Impaired fasting glycemia; Translations: [Impaired fasting glucose] Onset: 01-11-2021 04-06-2024 Episodic Neoplasms of unspecified nature or uncertain behavior (1 source) Thrombocytosis; Translations: [Thrombocytosis] Onset: 01-31-2023 04-06-2024 Episodic Other bone disease and musculoskeletal deformities (1 source) Postmenopausal osteopenia; Translations: [Other specified disorders of bone density and structure, unspecified site] Onset: 01-31-2023 04-06-2024 Episodic Other connective tissue disease (1 source) Muscle pain; Translations: [Myalgia, unspecified site] Onset: 05-03-2023 04-06-2024 Episodic Other connective tissue disease (1 source) Fibromyalgia; Translations: [Fibromyalgia] Onset: 07-22-2017 04-06-2024 Episodic Other ear and sense organ disorders (1 source) Tinnitus; Translations: [Tinnitus, unspecified ear] Onset: 02-03-2021 04-06-2024 Episodic Other gastrointestinal disorders (1 source) Dysphagia; Translations: [Dysphagia, unspecified] Onset: 12-22-2017 04-06-2024 Episodic Other nervous system disorders (1 source) Skin sensation disturbance; Translations: [Unspecified disturbances of skin sensation] Onset: 01-31-2023 04-06-2024 Episodic Other non-traumatic joint disorders (1 source) Multiple joint pain; Translations: [Pain in unspecified joint] Onset: 01-31-2023 04-06-2024 Episodic Other upper respiratory disease (1 source) Bleeding from nose; Translations: [Epistaxis] Onset: 02-26-2016 04-06-2024 Episodic Residual codes; unclassified (1 source) Amnesia; Translations: [Other amnesia] Onset: 07-29-2018 04-06-2024 Episodic Results Test Name Value Interpretation Reference Range Facility CBC (INCLUDES DIFF/PLT)on Basophils (Bld) [#/Vol] 0.102 10*3/uL Normal 0-200 [facility] Comment on above: Performed By: #### 1 3981, 4633 #### [facility] [place] [address] Roofing Technician: Lisandro Layton MD Basophils/100 WBC (Bld) 1.1 % Normal [facility] Comment on above: Performed By: #### 1 0231, 6399 #### [facility] [place] [address] Roofing Technician: Lisandro Layton MD Eosinophils (Bld) [#/Vol] 0.949 10*3/uL High 15-500 [facility] Comment on above: Performed By: #### 1 0231, 6399 #### [facility] [place] [address] Roofing Technician: Lisandro Layton MD Eosinophils/100 WBC (Bld) 10.2 % Normal [facility] Comment on above: Performed By: #### 1 023, 6399 #### [facility] [place] [address] Roofing Technician: Lisandro Layton MD Erythrocyte distribution width (RBC) [Ratio] 13.3 % Normal 11.0-15.0 [facility] Comment on above: Performed By: #### 1 0231, 6399 #### [facility] [place] [address] Roofing Technician: Lisandro Layton MD Hematocrit (Bld) [Volume fraction] 39.5 % Normal 35.0-45.0 [facility] Comment on above: Performed By: #### 1 0231, 6399 #### [facility] [place] [address] Roofing Technician: Lisandro Layton MD Hemoglobin (Bld) [Mass/Vol] 12.9 g/dL Normal 11.7-15.5 [facility] Comment on above: Performed By: #### 1 0231, 6399 #### [facility] [place] [address] Roofing Technician: Lisandro Layton MD Lymphocytes (Bld) [#/Vol] 2.837 10*3/uL Normal 850-3900 [facility] Comment on above: Performed By: #### 1 0231, 6399 #### [facility] [place] [address] Roofing Technician: Lisandro Layton MD Lymphocytes/100 WBC (Bld) 30.5 % Normal [facility] Comment on above: Performed By: #### 1 0231, 6399 #### [facility] [place] [address] Roofing Technician: Lisandro Layton MD MCH (RBC) [Entitic mass] 29.2 pg Normal 27.0-33.0 [facility] Comment on above: Performed By: #### 1 0231, 6399 #### [facility] [place] [address] Roofing Technician: Lisandro Layton MD MCHC (RBC) [Mass/Vol] 32.7 g/dL Normal 32.0-36.[address] [facility] Comment on above: Result Comment: For adults, a slight decrease in the calculated MCHC value (in the range of 30 to 32 g/dL) is most likely not clinically significant; however, it should be interpreted with caution in correlation with other red cell parameters and the patient's clinical condition. Performed By: #### 1 0231, 6399 #### [facility] [place] [address] Roofing Technician: Lisandro Layton MD MCV (RBC) [Entitic vol] 89.4 fL Normal 80.0-100.0 [facility] Comment on above: Performed By: #### 1 0231, 6399 #### [facility] [place] [address] Roofing Technician: Lisandro Layton MD Monocytes (Bld) [#/Vol] 0.558 10*3/uL Normal 200-950 [facility] Comment on above: Performed By: #### 1 0231, 6399 #### [facility] [place] [address] Roofing Technician: Lisandro Layton MD Monocytes/100 WBC (Bld) 6.0 % Normal [facility] Comment on above: Performed By: #### 1 0231, 6399 #### [facility] [place] [address] Roofing Technician: Lisandro Layton MD Neutrophils (Bld) [#/Vol] 4.855 10*3/uL Normal 0544-7378 [facility] Comment on above: Performed By: #### 1 0231, 6399 #### [facility] [place] [address] Roofing Technician: Lisandro Layton MD Neutrophils/100 WBC (Bld) 52.2 % Normal [facility] Comment on above: Performed By: #### 1 0231, 6399 #### [facility] [place] [address] Roofing Technician: Lisandro Layton MD Platelet mean volume (Bld) [Entitic vol] 9.7 fL Normal 7.5-12.5 [facility] Comment on above: Performed By: #### 1 0231, 6399 #### [facility] [place] [address] Roofing Technician: Lisandro Layton MD Platelets (Bld) [#/Vol] 365 10*3/uL Normal 140-400 [facility] Comment on above: Performed By: #### 1 0231, 6399 #### [facility] [place] [address] Roofing Technician: Lisandro Layton MD RBC (Bld) [#/Vol] 4.42 10*6/uL Normal 3.80-5.10 [facility] Comment on above: Performed By: #### 1 0231, 6399 #### [facility] [place] [address] Roofing Technician: Lisandro Layton MD WBC (Bld) [#/Vol] 9.3 10*3/uL Normal 3.8-10.8 [facility] Comment on above: Performed By: #### 1 0231, 6399 #### [facility] of [address], [address] [place] [address] Roofing Technician: Lisandro Layton MD [facility] 04-09-2024 Albumin [Mass/Vol] 4.5 g/dL Normal 3.6-5.1 [facility] Comment on above: Performed By: #### 1 0231, 6399 #### [facility] of [address], [address] [place] [address] Roofing Technician: Lisandro Layton MD Albumin/Globulin [Mass ratio] 1.9 {ratio} Normal 1.0-2.5 [facility] Comment on above: Performed By: #### 1 0231, 6399 #### [facility] of [address], [address] [place] [address] Roofing Technician: Lisandro Layton MD ALP [Catalytic activity/Vol] 103 U/L Normal 37-153 [facility] Comment on above: Performed By: #### 1 0231, 6399 #### [facility] [place] [address] Roofing Technician: Lisandro Layton MD ALT [Catalytic activity/Vol] 22 U/L Normal 6-29 [facility] Comment on above: Performed By: #### 1 0231, 6399 #### [facility] of [address], [address] [place] [address] Roofing Technician: Lisandro Layton MD AST [Catalytic activity/Vol] 25 U/L Normal 10-35 [facility] Comment on above: Performed By: #### 1 0231, 6399 #### [facility] [place] [address] Roofing Technician: Lisandro Layton MD Bilirubin [Mass/Vol] 0.4 mg/dL Normal 0.2-1.2 [facility] Comment on above: Performed By: #### 1 0231, 6399 #### [facility] of [address], [address] [place] [address] Roofing Technician: Lisandro Layton MD BUN/CREATININE RATIO SEE NOTE: Normal 6-22 [facility] Comment on above: Result Comment: Not Reported: BUN and Creatinine are within reference range. Performed By: #### 1 0231, 6399 #### [facility] of [address], [address] [place] [address] Roofing Technician: Lisandro Layton MD Calcium [Mass/Vol] 9.5 mg/dL Normal 8.6-10.4 [facility] Comment on above: Performed By: #### 1 0231, 6399 #### [facility] of [address], [address] [place] [address] Roofing Technician: Lisandro Layton MD Chloride [Moles/Vol] 104 mmol/L Normal 98-110 [facility] Comment on above: Performed By: #### 1 0231, 6399 #### [facility] of [address], [address] [place] [address] Roofing Technician: Lisandro Layton MD CO2 [Moles/Vol] 30 mmol/L Normal 20-32 [facility] Comment on above: Performed By: #### 1 0231, 6399 #### [facility] [place] [address] Roofing Technician: Lisandro Layton MD Creatinine [Mass/Vol] 0.76 mg/dL Normal 0.50-1.[address] [facility] [address] [facility] Comment on above: Performed By: #### 1 0231, 6399 #### [facility] [place] [address] Roofing Technician: Lisandro Layton MD GFR/1.73 sq M.predicted among non-blacks MDRD (S/P/Bld) [Vol rate/Area] 91 mL/min/{1.73_m2} Normal > OR = 60 [facility] Comment on above: Performed By: #### 1 0231, 6399 #### [facility] of [address], [address] [place] [address] Roofing Technician: Lisandro Layton MD Globulin (S) [Mass/Vol] 2.4 g/dL Normal 1.9-3.7 [facility] Comment on above: Performed By: #### 1 0231, 6399 #### [facility] [place] [address] Roofing Technician: Lisandro Layton MD Glucose [Mass/Vol] 78 mg/dL Normal 65-99 [facility] Comment on above: Result Comment: Fasting reference interval Performed By: #### 1 0231, 6399 #### [facility] [place] [address] Roofing Technician: Lisandro Layton MD Potassium [Moles/Vol] 4.1 mmol/L Normal 3.5-5.[address] [facility] Comment on above: Performed By: #### 1 230, 6399 #### [facility] [place] [address] Roofing Technician: Lisandro Layton MD Protein [Mass/Vol] 6.9 g/dL Normal 6.1-8.1 [facility] Comment on above: Performed By: #### 1 0231, 6399 #### [facility] [place] [address] Roofing Technician: Lisandro Layton MD Sodium [Moles/Vol] 141 mmol/L Normal 135-146 [facility] Comment on above: Performed By: #### 1 0231, 6399 #### [facility] [place] [address] Roofing Technician: Lisandro Layton MD Urea nitrogen [Mass/Vol] 13 mg/dL Normal 7-25 [facility] Comment on above: Performed By: #### 1 0231, 6399 #### [facility] of [place] [address] Roofing Technician: Lisandro Layton MD NM GASTRIC EMPTYING SOLIDon 03-29-2024 NM GASTRIC EMPTYING SOLID NM GASTRIC EMPTYING SOLID HISTORY: A 58-year-old female with the history of early satiety and fullness. TECHNIQUE: Radionuclide Gastric Emptying Imaging with the solid food. COMPARISON: None available.. FINDINGS: The solid phase of gastric emptying study is performed by using 1.0 mCi of technetium-99m sulfur colloid labeled 4 ounces of eggs, slice of bread with butter and 4 ounces of liquid. The gastric emptying images are obtained at 1 hour, 2 hours, 3 hours and 4 hours after ingestion of radiolabeled solid food. Patient was able to retain entire meal. The calculated T1/2 of the gastric emptying is 199 minutes by sloped method. The retention of the gastric activity is 79% at 60 minutes, 58% at 2 hours and 39% at 4 hours after ingestion of the radiolabeled solid food. IMPRESSION: Markedly delayed gastric emptying for solid phase of examination. Values as described above. REFERENCE: See the normal values in following table. TABLE Normal Limits for Gastric Retention Time Point Lower Limit(a lower value suggests abnormally rapid gastric emptying) Upper Limit (a greater value suggests abnormally delayed gastric emptying) 30 mins 70% 1 hour 30% 90% 2 hours 60% 3 hours 30% 4 hours 10% Data are from [employer] J Gatroenterology 2007: 102:1-11 Finalized by Sandor Barrera MD on 03/29/2024 11:25 AM Normal [facility] Surgical Pathology Reporton 02-10-2024 Surgical Pathology Report (NOTE) Path Number: [id number] -- Diagnosis -- A. DUODENUM, BIOPSY: -PATCHY MILD TO MODERATE ACTIVE DUODENITIS WITH ASSOCIATED EOSINOPHILIA AND FOCAL EROSION/ULCERATION. -NO FEATURES OF CELIAC DISEASE. B. STOMACH, BIOPSY: -GASTRIC ANTRAL MUCOSA WITH MILD CHRONIC INACTIVE GASTRITIS. -NEGATIVE FOR H. PYLORI ORGANISMS ON SHAMA STAIN. Rickie Marti M.D. Electronically Signed Out mary/02/12/2024 Clinical Information Pre-Op Diagnosis: WEIGHT LOSS, ABDOMINAL PAIN, GASTROESOPHAGEAL REFLUX DISEASE Operative Findings: DUODENAL BIOPSY; STOMACH BIOPSY Operation Performed: EGD BIOPSY; COLONOSCOPY DIAGNOSTIC mj Source of Specimen A: DUODENAL BX B: STOMACH BIOPSY Gross Description Kacey TADEO DUODENAL BIOPSY Received in formalin are four pink-saleem tissue fragments from 0.3 to 0.6 cm and are 1.0 x 0.6 x 0.2 cm in aggregate. Entirely 1 cs. B. MARLENI WALLY, STOMACH BIOPSY Received in formalin are four pink-saleem tissue fragments from 0.2 to 0.7 cm and are 0.9 x 0.6 x 0.2 cm in aggregate. Entirely 1 cs. jj mj Armen Maya./shonda:02/11/2024 Microscopic Description A, B. Microscopic examination performed. Processing Lab: [facility] [address] [place] [address] Interpretation Performed at [facility] [address] [place], [place] SURGICAL PATHOLOGY CONSULTATION Patient Name: MARLENI TADEO [facility] Rec: [id number] [facility] ANATOMIC PATHOLOGY [address] [facility]. [place], [place] [address] Normal [facility] Basic Metabolic Panelon 09-2 Anion gap [Moles/Vol] 13.9 mmol/L Normal 6.0-15.0 [facility] Comment on above: Performed By: #### B MP, CK, TSH3, PHOS, PTH, MG, ESR, [id number], CBC, CRP #### [facility] [address] Calcium [Mass/Vol] 10.1 mg/dL Normal 8.6-10.3 [facility] Comment on above: Performed By: #### B MP, CK, TSH3, PHOS, PTH, MG, ESR, [id number], CBC, CRP #### [facility] [address] [place] [address] [place] Chloride [Moles/Vol] 103 mmol/L Normal 98-107 [facility] Comment on above: Performed By: #### B MP, CK, TSH3, PHOS, PTH, MG, ESR, [id number], CBC, CRP #### [facility] [address] [place] [id number] [facility] CO2 [Moles/Vol] 29.0 mmol/L Normal 21.0-31.0 [facility] Comment on above: Performed By: #### B MP, CK, TSH3, PHOS, PTH, MG, ESR, [id number], CBC, CRP #### [facility] [address] Creatinine [Mass/Vol] 0.87 mg/dL Normal 0.60-1.20 [facility] Comment on above: Performed By: #### B MP, CK, TSH3, PHOS, PTH, MG, ESR, [id number], CBC, CRP #### [facility] [address] [place] [address] [place] GFR/1.73 sq M.predicted MDRD (S/P/Bld) [Vol rate/Area] mL/min/{1.73_m2} Normal [facility] Comment on above: Performed By: #### B MP, CK, TSH3, PHOS, PTH, MG, ESR, [id number], CBC, CRP #### [address] Glucose [Mass/Vol] 103 mg/dL High 70-100 [facility] Comment on above: Result Comment: [facility] Glucose Reference Range is dependent on time and content of last meal. Glucose of more than 200 mg/dL in a nonstressed, ambulatory subject supports the diagnosis of Diabetes Mellitus. ADA recommended reference range Performed By: #### B MP, CK, TSH3, PHOS, PTH, MG, ESR, [id number], CBC, CRP #### [address] Potassium [Moles/Vol] 4.9 mmol/L Normal 3.5-5.1 [facility] Comment on above: Performed By: #### B MP, CK, TSH3, PHOS, PTH, MG, ESR, [id number], CBC, CRP #### [facility] [address] Sodium [Moles/Vol] 141 mmol/L Normal 136-145 [facility] Comment on above: Performed By: #### B MP, CK, TSH3, PHOS, PTH, MG, ESR, [id number], CBC, CRP #### [address] Urea nitrogen [Mass/Vol] 16 mg/dL Normal 7-25 [facility] Comment on above: Performed By: #### B MP, CK, TSH3, PHOS, PTH, MG, ESR, [id number], CBC, CRP #### [facility] [address] Basophils Auto (Bld) [#/Vol] Ordered By: Lasha Jones on 02-19-2023 Basophils (Bld) [#/Vol] 0.1 10*3/uL 0.0-0.2 [facility] Basophils/100 WBC Auto (Bld) Ordered By: Lasha Jones on 02-19-2023 Basophils/100 WBC (Bld) 1.1 % . F [facility] C reactive protein [Mass/vol ume] in Serum or PlasmaOrdered By: Lasha Jones on 02-19-2023 CRP [Mass/Vol] < 0.5 mg/dL 0.0-0.5 [facility] C-Reactive Proteinon 023 CRP [Mass/Vol] mg/L Normal 0.0-0.5 [facility] [facility] Comment on above: Performed By: #### B MP, CK, TSH3, PHOS, PTH, MG, ESR, [id number], CBC, CRP #### [facility] [address] Calcium [Mass/volume] in Ser um or PlasmaOrdered By: Lasha Jones on 02-19-2023 Calcium [Mass/Vol] 10.1 mg/dL 8.6-10.3 [facility] Carbon dioxide, total [Moles /volume] in Serum or PlasmaOrdered By: Lasha Jones on 02-19-2023 CO2 [Moles/Vol] 29.0 mmol/L 21.0-31.0 [facility] Chloride [Moles/volume] in S rosita or PlasmaOrdered By: Lasha Jones on 02-19-2023 Chloride [Moles/Vol] 103 mmol/L 98-107 [facility] Complete Blood Count Auto Di ffon 02-19-2023 Basophils (Bld) [#/Vol] 0.1 10*3/uL Normal 0.0-0.2 [facility] Comment on above: Performed By: #### B MP, CK, TSH3, PHOS, PTH, MG, ESR, [id number], CBC, CRP #### [facility] [address] Basophils/100 WBC (Bld) 1.1 % Normal . [facility] Comment on above: Performed By: #### B MP, CK, TSH3, PHOS, PTH, MG, ESR, [id number], CBC, CRP #### [facility] [address] Eosinophils (Bld) [#/Vol] 0.1 10*3/uL Normal 0.0-0.45 [facility] Comment on above: Performed By: #### B MP, CK, TSH3, PHOS, PTH, MG, ESR, [id number], CBC, CRP #### [address] Eosinophils/100 WBC (Bld) 1.9 % Normal . [facility] Comment on above: Performed By: #### B MP, CK, TSH3, PHOS, PTH, MG, ESR, [id number], CBC, CRP #### [address] Erythrocyte distribution width (RBC) [Ratio] 13.7 % Normal 11.9-15.3 [facility] Comment on above: Performed By: #### B MP, CK, TSH3, PHOS, PTH, MG, ESR, [id number], CBC, CRP #### [address] Hematocrit (Bld) [Volume fraction] 41.6 % Normal 34.0-46.4 [facility] Comment on above: Performed By: #### B MP, CK, TSH3, PHOS, PTH, MG, ESR, [id number], CBC, CRP #### [address] Hemoglobin (Bld) [Mass/Vol] 13.6 g/dL Normal 11.8-15.4 [facility] Comment on above: Performed By: #### B MP, CK, TSH3, PHOS, PTH, MG, ESR, [id number], CBC, CRP #### [facility] [address] Lymphocytes (Bld) [#/Vol] 1.9 10*3/uL Normal 1.00-4.8 [facility] Comment on above: Performed By: #### B MP, CK, TSH3, PHOS, PTH, MG, ESR, [id number], CBC, CRP #### [facility] [address] Lymphocytes/100 WBC (Bld) 35.6 % Normal . [facility] Comment on above: Performed By: #### B MP, CK, TSH3, PHOS, PTH, MG, ESR, [id number], CBC, CRP #### [address] MCH (RBC) [Entitic mass] 29.0 pg Normal 24.7-34.3 [facility] Comment on above: Performed By: #### B MP, CK, TSH3, PHOS, PTH, MG, ESR, [id number], CBC, CRP #### [address] MCV (RBC) [Entitic vol] 88.4 fL Normal 80-100 [facility] Comment on above: Performed By: #### B MP, CK, TSH3, PHOS, PTH, MG, ESR, [id number], CBC, CRP #### [facility] [address] Mean Corpuscular HGB Conc 32.8 g/dL Normal 32.0-35.0 [facility] Comment on above: Performed By: #### B MP, CK, TSH3, PHOS, PTH, MG, ESR, [id number], CBC, CRP #### [address] Monocytes (Bld) [#/Vol] 0.3 10*3/uL Normal 0.0-0.8 [facility] Comment on above: Performed By: #### B MP, CK, TSH3, PHOS, PTH, MG, ESR, [id number], CBC, CRP #### [facility] [address] Monocytes/100 WBC (Bld) 6.0 % Normal . [facility] Comment on above: Performed By: #### B MP, CK, TSH3, PHOS, PTH, MG, ESR, [id number], CBC, CRP #### [facility] [address] Neutrophils (Bld) [#/Vol] 3.0 10*3/uL Normal 1.8-7.7 [facility] Comment on above: Performed By: #### B MP, CK, TSH3, PHOS, PTH, MG, ESR, [id number], CBC, CRP #### [address] Neutrophils/100 WBC (Bld) 55.4 % Normal . [facility] Comment on above: Performed By: #### B MP, CK, TSH3, PHOS, PTH, MG, ESR, [id number], CBC, CRP #### [address] NRBC% 0.1 /100{WBC} Normal 0-0.5 [facility] Comment on above: Performed By: #### B MP, CK, TSH3, PHOS, PTH, MG, ESR, [id number], CBC, CRP #### [address] Platelet mean volume (Bld) [Entitic vol] 7.6 fL Normal 6.3-10.7 [facility] Comment on above: Performed By: #### B MP, CK, TSH3, PHOS, PTH, MG, ESR, [id number], CBC, CRP #### [address] Platelets (Bld) [#/Vol] 389 10*3/uL Normal 150-450 [facility] Comment on above: Performed By: #### B MP, CK, TSH3, PHOS, PTH, MG, ESR, [id number], CBC, CRP #### [address] RBC (Bld) [#/Vol] 4.70 10*6/uL Normal 3.60-5.00 [facility] Comment on above: Performed By: #### B MP, CK, TSH3, PHOS, PTH, MG, ESR, [id number], CBC, CRP #### [facility] [address] WBC (Bld) [#/Vol] 5.4 10*3/uL Normal 3.8-11.6 [facility] Comment on above: Performed By: #### B MP, CK, TSH3, PHOS, PTH, MG, ESR, [id number], CBC, CRP #### [address] Creatine Kinaseon 02-19-2023 CK [Catalytic activity/Vol] 111 U/L Normal - [facility] Comment on above: Result Comment: PERF ORMED BY: [place] [address] PATHOLOGIST [place] AGENT JOSE BRITT M.D. Performed By: #### B MP, CK, TSH3, PHOS, PTH, MG, ESR, [id number], CBC, CRP #### [address] Creatine kinase [Enzymatic a ctivity/volume] in Serum or PlasmaOrdered By: Lasha Jones on 02-19-2023 CK [Catalytic activity/Vol] 111 U/L [facility] Creatinine [Mass/volume] in Serum or PlasmaOrdered By: Lasha Jones on 02-19-2023 Creatinine [Mass/Vol] 0.87 mg/dL 0.60-1.20 [facility] Eosinophils Auto (Bld) [#/Vo l]Ordered By: Lasha Jones on 02-19-2023 Eosinophils (Bld) [#/Vol] 0.1 10*3/uL 0.0-0.45 [facility] Eosinophils/100 WBC Auto (Bl d)Ordered By: Lasha Jones on 02-19-2023 Eosinophils/100 WBC (Bld) 1.9 % . [facility] Erythrocyte Sedimentation Ra ashley 02-19-2023 ESR (Bld) [Velocity] 27 mm/h Normal 0-29 [facility] Comment on above: Result Comment: PERF ORMED BY: [facility] [address] [place] [address] PATHOLOGIST [place] AGENT JOSE BRITT M.D. Performed By: #### B MP, CK, TSH3, PHOS, PTH, MG, ESR, [id number], CBC, CRP #### [facility] [address] Erythrocyte distribution wid th Auto (RBC) [Ratio]Ordered By: Lasha Jones on 02-19-2023 Erythrocyte distribution width (RBC) [Ratio] 13.7 % 11.9-15.3 [facility] Erythrocyte sedimentation ra te by Photometric methodOrdered By: Lasha Jones on 02-19-2023 ESR Photometric method (Bld) [Velocity] 27 mm/hr 0-29 [facility] Glucose [Mass/volume] in Ser um or PlasmaOrdered By: Lasha Jones on 02-19-2023 Glucose [Mass/Vol] 103 mg/dL 70-100 [facility] Comment on above: ADA recommended refe rence rangeRandom Glucose Reference Range is dependent on time and content of last meal. Glucose of more than 200 mg/dL in a nonstressed, ambulatory subject supports the diagnosis of Diabetes Mellitus. Hematocrit Auto (Bld) [Volum e fraction]Ordered By: Lasha Jones on 02-19-2023 Hematocrit (Bld) [Volume fraction] 41.6 % 34.0-46.4 [facility] Hemoglobin [Mass/volume] in BloodOrdered By: Lasha Jones on 02-19-2023 Hemoglobin (Bld) [Mass/Vol] 13.6 g/dL 11.8-15.4 [facility] Leukocytes [#/volume] correc marley for nucleated erythrocytes in Blood by Automated counOrdered By: Lasha Jones on 02-19-2023 WBC corrected for nucl RBC Auto (Bld) [#/Vol] 5.4 10*3/uL 3.8-11.6 [facility] Lymphocytes Auto (Bld) [#/Vo l]Ordered By: Lasha Jones on 02-19-2023 Lymphocytes (Bld) [#/Vol] 1.9 10*3/uL 1.00-4.8 [facility] Lymphocytes/100 WBC Auto (Bl d)Ordered By: Lasha Jones on 02-19-2023 Lymphocytes/100 WBC (Bld) 35.6 % . [facility] MCH Auto (RBC) [Entitic mass ]Ordered By: Lasha Jones on 02-19-2023 MCH (RBC) [Entitic mass] 29.0 pg 24.7-34.3 [facility] MCHC Auto (RBC) [Mass/Vol]Or dered By: Lasha Jones on 02-19-2023 MCHC (RBC) [Mass/Vol] 32.8 g/dL 32.0-35.0 [facility] MCV Auto (RBC) [Entitic vol] Ordered By: Lasha Jones on 02-19-2023 MCV (RBC) [Entitic vol] 88.4 fL 80-100 [facility] Magnesiumon 02-19-2023 Magnesium [Mass/Vol] 2.3 mg/dL Normal 1.9-2.7 [facility] Comment on above: Performed By: #### B MP, CK, TSH3, PHOS, PTH, MG, ESR, [id number], CBC, CRP #### [facility] [address] Magnesium [Mass/volume] in S rosita or PlasmaOrdered By: Lasha Jones on 02-19-2023 Magnesium [Mass/Vol] 2.3 mg/dL 1.9-2.7 [facility] Monocytes Auto (Bld) [#/Vol] Ordered By: Lahsa Jones on 02-19-2023 Monocytes (Bld) [#/Vol] 0.3 10*3/uL 0.0-0.8 [facility] Monocytes/100 WBC Auto (Bld) Ordered By: Lasha Jones on 02-19-2023 Monocytes/100 WBC (Bld) 6.0 % . [facility] Neutrophils Auto (Bld) [#/Vo l]Ordered By: Lasha Jones on 02-19-2023 Neutrophils (Bld) [#/Vol] 3.0 10*3/uL 1.8-7.7 [facility] Neutrophils/100 WBC Auto (Bl d)Ordered By: Lasha Jones on 02-19-2023 Neutrophils/100 WBC (Bld) 55.4 % . [facility] No Panel InformationOrdered By: Lasha Jones on 02-19-2023 Estimated GFR (CKD-EPI) > 60.0 mL/Min [facility] Creatinine Clearance (Chem N/A [facility] Nucleated erythrocytes [Pres ence] in Blood by Automated countOrdered By: Lasha Jones on 02-19-2023 Nucleated RBC Auto Ql (Bld) 0.1 /100{WBC} 0-0.5 [facility] Parathyrin.intact [Mass/volu me] in Serum or PlasmaOrdered By: Lasha Jones on 02-19-2023 Parathyrin.intact [Mass/Vol] 47.1 pg/mL [facility] Parathyroid Hormone Intacton 02-19-2023 Parathyroid Hormone Intact 47.1 pg/mL Normal [facility] Comment on above: Result Comment: PERF ORMED BY: [facility] [address] [place] [address] PATHOLOGIST [place] AGENT JOSE BRITT M.D. Performed By: #### B MP, CK, TSH3, PHOS, PTH, MG, ESR, [id number], CBC, CRP #### [facility] [address] [place] [address] [facility] Phosphate [Mass/volume] in S rosita or PlasmaOrdered By: Lasha Jones on 02-19-2023 Phosphate [Mass/Vol] 4.1 mg/dL 3.7-7.2 [facility] Phosphoruson 02-19-2023 Phosphate [Mass/Vol] 4.1 mg/dL Normal 3.7-7.2 [facility] Comment on above: Performed By: #### B MP, CK, TSH3, PHOS, PTH, MG, ESR, [id number], CBC, CRP #### [facility] [address] Platelet mean volume Auto (B ld) [Entitic vol]Ordered By: Lasha Jones on 02-19-2023 Platelet mean volume (Bld) [Entitic vol] 7.6 fL 6.3-10.7 [facility] Platelets Auto (Bld) [#/Vol] Ordered By: Lasha Jones on 02-19-2023 Platelets (Bld) [#/Vol] 389 10*3/uL 150-450 [facility] Potassium [Moles/volume] in Serum or PlasmaOrdered By: Lasha Jones on 02-19-2023 Potassium [Moles/Vol] 4.9 mmol/L 3.5-5.1 [facility] RBC Auto (Bld) [#/Vol]Ordere d By: Lasha Jones on 02-19-2023 RBC (Bld) [#/Vol] 4.70 10*6/uL 3.60-5.00 [facility] Serum or plasma anion gap de terminationOrdered By: Lasha Jones on 02-19-2023 Anion gap [Moles/Vol] 13.9 mmol/L 6.0-15.0 [facility] Sodium [Moles/volume] in Ser um or PlasmaOrdered By: Lasha Jones on 02-19-2023 Sodium [Moles/Vol] 141 mmol/L 136-145 [facility] Thyroid Stimulating Hormoneo n 02-19-2023 TSH Qn 1.74 m[IU]/L Normal 0.45-5.33 [facility] Comment on above: Performed By: #### B MP, CK, TSH3, PHOS, PTH, MG, ESR, [id number], CBC, CRP #### [facility] [address] Thyrotropin [Units/volume] i n Serum or PlasmaOrdered By: Lasha Jones on 02-19-2023 TSH Qn 1.74 m[IU]/L 0.45-5.33 [facility] Urea nitrogen [Mass/volume] in Serum or PlasmaOrdered By: Lasha Jones on 02-19-2023 Urea nitrogen [Mass/Vol] 16 mg/dL 7-25 [facility] Vitamin D 25 Hydroxy Totalon 02-19-2023 Vitamin D 25 Hydroxy Total 64.0 ng/mL Normal 30-100 [facility] Comment on above: Result Comment: JADE MIN D STATUS 25(OH)VITAMIN D RANGE (ng/mL) Deficient <20 Insufficient 20 to <30 Sufficient 30 to 100 Reference: Courtney Durand, Archana DURAN, et al. Evaluation,treatment, and prevention of vitamin D deficiency; an Endocrine Society clinical practice guideline. JCEM. 2010; 96(7):191-. PERFORMED BY: [place] [address] PATHOLOGIST COUNTY AGENT JOSE BRITT M.D. Performed By: #### B MP, CK, TSH3, PHOS, PTH, MG, ESR, [id number], CBC, CRP #### [facility] [address] Vitamin D+Metabolites [Mass/ volume] in Serum or PlasmaOrdered By: Lasha Jones on 02-19-2023 Vitamin D+Metabolites [Mass/Vol] 64.0 ng/mL 30-100 [facility] Comment on above: VITAMIN D STATUS 25( OH)VITAMIN D RANGE (ng/mL) Deficient <20 Insufficient 20 to <30Sufficient 30 to 100Reference: Courtney Durand, Archana DURAN, et al. Evaluation,treatment, and prevention of vitamin D deficiency; an Endocrine Society clinical practice guideline. JCEM. 2010; 96(7):191-. 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 Order #: [id number] CLICK HERE TO VIEW EXAM RADIOLOGY REPORT [...] lung cancer at age 68. LOCATION: [facility] BREAST COMPOSITION: Heterogeneously dense,which may obscure small [...] Randall MD on 01/08/2022 at 11:04 Normal [facility] C-Reactive Proteinon 022 CRP IV <0.3 Normal [facility] Comment on above: Performed By: #### T SH, CMP, CRP, ESR, CK, CBCAD #### [facility] [address] [place], [place] [id number] Complete Blood Count with Au to Diffon 09-10-2021 Basophils (Bld) [#/Vol] 0.08 10*3/uL Normal 0.00-0.20 [facility] Comment on above: Performed By: #### T SH, CMP, CRP, ESR, CK, CBCAD #### [facility] [address] [place], [place] [id number] Basophils/100 WBC (Bld) 1.0 % Normal [facility] Comment on above: Performed By: #### T SH, CMP, CRP, ESR, CK, CBCAD #### [facility] [address] [place], [place] [id number] Eosinophils (Bld) [#/Vol] 0.19 10*3/uL Normal 0.02-0.50 [facility] Comment on above: Performed By: #### T SH, CMP, CRP, ESR, CK, CBCAD #### [facility] [address] [place], [place] [id number] Eosinophils/100 WBC (Bld) 2.4 % Normal [facility] Comment on above: Performed By: #### T SH, CMP, CRP, ESR, CK, CBCAD #### [facility] [address] [place], [place] [id number] Erythrocyte distribution width (RBC) [Ratio] 14.3 % Normal 11.0-15.0 [facility] Comment on above: Performed By: #### T SH, CMP, CRP, ESR, CK, CBCAD #### [facility] [address] [place], [place] [id number] Hematocrit (Bld) [Volume fraction] 43.5 % Normal 35.0-47.0 [facility] Comment on above: Performed By: #### T SH, CMP, CRP, ESR, CK, CBCAD #### [facility] [address] [place], [place] [id number] Hemoglobin (Bld) [Mass/Vol] 13.9 g/dL Normal 11.6-15.5 [facility] Comment on above: Performed By: #### T SH, CMP, CRP, ESR, CK, CBCAD #### [facility] [address] [place], [place] [id number] Lymphocytes (Bld) [#/Vol] 2.6 10*3/uL Normal 0.9-3.9 [facility] Comment on above: Performed By: #### T SH, CMP, CRP, ESR, CK, CBCAD #### [facility] [address] [place], [place] [id number] Lymphocytes/100 WBC (Bld) 33.2 % Normal [facility] Comment on above: Performed By: #### T SH, CMP, CRP, ESR, CK, CBCAD #### [facility] [address] [place], [place] [id number] MCH (RBC) [Entitic mass] 28.8 pg Normal 27.0-33.0 [facility] Comment on above: Performed By: #### T SH, CMP, CRP, ESR, CK, CBCAD #### [facility] [address] [place], [place] [id number] MCHC (RBC) [Mass/Vol] 32.0 g/dL Normal 32.0-36.0 [facility] Comment on above: Performed By: #### T SH, CMP, CRP, ESR, CK, CBCAD #### [facility] [address] [place], [place] [id number] MCV (RBC) [Entitic vol] 90 fL Normal 80-100 [facility] Comment on above: Performed By: #### T SH, CMP, CRP, ESR, CK, CBCAD #### [facility] [address] [place], [place] [id number] Monocytes (Bld) [#/Vol] 0.5 10*3/uL Normal 0.2-0.9 [facility] Comment on above: Performed By: #### T SH, CMP, CRP, ESR, CK, CBCAD #### [facility] [address] [place], [place] [id number] Monocytes/100 WBC (Bld) 6.9 % Normal [facility] Comment on above: Performed By: #### T SH, CMP, CRP, ESR, CK, CBCAD #### [facility] [address] [place], [place] [id number] Neutrophils (Bld) [#/Vol] 4.4 10*3/uL Normal 1.5-7.8 [facility] Comment on above: Performed By: #### T SH, CMP, CRP, ESR, CK, CBCAD #### [facility] [address] [place], [place] [id number] Neutrophils/100 WBC (Bld) 56.2 % Normal [facility] Comment on above: Performed By: #### T SH, CMP, CRP, ESR, CK, CBCAD #### [facility] [address] [place], [place] [id number] Platelet mean volume (Bld) [Entitic vol] 9.50 fL Normal 7.50-12.50 [facility] Comment on above: Performed By: #### T SH, CMP, CRP, ESR, CK, CBCAD #### [facility] [address] [place], [place] [id number] Platelets (Bld) [#/Vol] 427 10*3/uL High 140-400 [facility] Comment on above: Performed By: #### T SH, CMP, CRP, ESR, CK, CBCAD #### [facility] [address] [place], [place] [id number] RBC (Bld) [#/Vol] 4.83 10*6/uL Normal 3.90-5.20 [facility] Comment on above: Performed By: #### T SH, CMP, CRP, ESR, CK, CBCAD #### [facility] [address] [place], [place] [id number] RDW-SD 47.3 fL Normal 37.0-50.0 [facility] Comment on above: Performed By: #### T SH, CMP, CRP, ESR, CK, CBCAD #### [facility] [address] [place], [place] [id number] WBC (Bld) [#/Vol] 7.9 10*3/uL Normal 3.8-11.0 [facility] [place] [employer] Comment on above: Performed By: #### T SH, CMP, CRP, ESR, CK, CBCAD #### [facility] [address] [place], [place] [id number] Comprehensive Metabolic Pane taiwo 09-10-2021 Albumin [Mass/Vol] 5.2 g/dL High 3.6-5.1 [facility] [place] [employer] Comment on above: Performed By: #### T SH, CMP, CRP, ESR, CK, CBCAD #### [facility] [address] [place], [place] [id number] Albumin/Globulin [Mass ratio] 2.4 {ratio} Normal 1.0-2.5 [facility] [employer] Comment on above: Performed By: #### T SH, CMP, CRP, ESR, CK, CBCAD #### [facility] [address] [place], [place] [id number] ALP [Catalytic activity/Vol] 115 U/L Normal 35-119 [facility] [employer] Comment on above: Performed By: #### T SH, CMP, CRP, ESR, CK, CBCAD #### [facility] [address] [place], [place] [id number] ALT [Catalytic activity/Vol] 18 U/L Normal 6-33 [facility] Comment on above: Result Comment: 05/02 Female reference range changed. Performed By: #### T SH, CMP, CRP, ESR, CK, CBCAD #### [facility] [address] [place], [place] [id number] Anion gap [Moles/Vol] 20 mmol/L Normal 12-20 [facility] Comment on above: Result Comment: Effe ctive 06/07/2019 reference range changed. Performed By: #### T SH, CMP, CRP, ESR, CK, CBCAD #### [facility] [address] [place], [place] [id number] AST [Catalytic activity/Vol] 24 U/L Normal 9-34 [facility] [employer] Comment on above: Performed By: #### T SH, CMP, CRP, ESR, CK, CBCAD #### [facility] [address] [place], [place] [id number] Bilirubin [Mass/Vol] 0.36 mg/dL Normal 0.30-1.20 [facility] Comment on above: Performed By: #### T SH, CMP, CRP, ESR, CK, CBCAD #### [facility] [address] [place], [place] [id number] BUN/CREA 23 Ratio High 6-22 [facility] Comment on above: Performed By: #### T SH, CMP, CRP, ESR, CK, CBCAD #### [facility] [address] [place], [place] [id number] Calcium [Mass/Vol] 10.3 mg/dL High 8.6-10.2 [facility] Comment on above: Performed By: #### T SH, CMP, CRP, ESR, CK, CBCAD #### [facility] [address] [place], [place] [id number] Chloride [Moles/Vol] 104 mmol/L Normal 98-107 [facility] Comment on above: Performed By: #### T SH, CMP, CRP, ESR, CK, CBCAD #### [facility] [address] [place], [place] [id number] CO2 [Moles/Vol] 23 mmol/L Normal 20-31 [facility] Comment on above: Performed By: #### T SH, CMP, CRP, ESR, CK, CBCAD #### [facility] [address] [place], [place] [id number] Creatinine [Mass/Vol] 0.8 mg/dL Normal 0.6-1.4 [facility] Comment on above: Performed By: #### T SH, CMP, CRP, ESR, CK, CBCAD #### [facility] [address] [place], [place] [id number] eGFRAA 97 mL/min/1.73m2 Normal >60 [facility] Comment on above: Performed By: #### T SH, CMP, CRP, ESR, CK, CBCAD #### [facility] [address] [place], [place] [id number] eGFRNAA 80 mL/min/1.73m2 Normal >60 [facility] [employer] Comment on above: Performed By: #### T SH, CMP, CRP, ESR, CK, CBCAD #### [facility] [address] [place], [place] [id number] Globulin (S) [Mass/Vol] 2.2 g/dL Normal 1.9-3.7 [facility] Comment on above: Performed By: #### T SH, CMP, CRP, ESR, CK, CBCAD #### [facility] [address] [place], [place] [id number] Glucose [Mass/Vol] 90 mg/dL Normal 65-99 [place] [employer] Comment on above: Result Comment: For FASTING Glucose --- ADA reference ranges: Normal 65-99 mg/dl Prediabetes 100-125 Diabetes >/= 126 Performed By: #### T SH, CMP, CRP, ESR, CK, CBCAD #### [facility] [address] [place], [place] [id number] Potassium [Moles/Vol] 4.3 mmol/L Normal 3.5-5.5 [facility] Comment on above: Performed By: #### T SH, CMP, CRP, ESR, CK, CBCAD #### [facility] [address] [place], [place] [id number] Protein [Mass/Vol] 7.4 g/dL Normal 6.1-8.1 [place] [employer] Comment on above: Performed By: #### T SH, CMP, CRP, ESR, CK, CBCAD #### [facility] [address] [place], [place] [id number] Sodium [Moles/Vol] 143 mmol/L Normal 135-146 [place] [employer] Comment on above: Performed By: #### T SH, CMP, CRP, ESR, CK, CBCAD #### [facility] [address] [place], [place] [id number] Urea nitrogen [Mass/Vol] 18 mg/dL Normal 7-25 [facility] [employer] Comment on above: Performed By: #### T SH, CMP, CRP, ESR, CK, CBCAD #### [facility] [address] [place], [place] [id number] Creatine Kinaseon 09-10-2021 CK [Catalytic activity/Vol] 72 U/L Normal 26-192 [facility] Comment on above: Performed By: #### T SH, CMP, CRP, ESR, CK, CBCAD #### [facility] [address] [place], [place] [id number] Hemoglobin A1Con 09-10-2021 EAG 114.02 Normal [facility] Comment on above: Performed By: #### A 1C #### [facility] [address] [place], [place] [id number] HbA1c (Bld) [Mass fraction] 5.6 % Normal 4.0-6.0 [facility] Comment on above: Performed By: #### A 1C #### [facility] [address] [place], [place] [id number] Q - MARINE MULTIPLEX W/ REFLEX TO 11 ANTIBODY CASCADEon 09-10-2021 ANACHOICE(R) SCREEN Negative Normal NEGATIVE [facility] Comment on above: Order Comment: [facility] performed at: [facility], [address] [place] [address], [address] [place] [address], [id number], Data Entry Associate: Lisandro Layton MD [facility] Collection Date/Time: [facility] Results Received Date/Time: [facility] Reported Date/Time: Result Comment: A ne gative MARINE Multiplex, with Reflex to 11 Antibody [place] indicates the absence of detectable antibodies to component analytes consisting of double stranded DNA (dsDNA), chromatin, ribonucleoprotein (TECHNOLOGY SOLUTIONS ARCHITECT), Alexander/TECHNOLOGY SOLUTIONS ARCHITECT (Sm/TECHNOLOGY SOLUTIONS ARCHITECT), Alexander (Sm), SS-A, SS-B, Ashley-1, centromere B, Scl-70 and ribosomal P. A negative result should be interpreted in the context of the clinical and laboratory findings and does not rule out autoimmune disease characterized by other autoantibody specificities such as rheumatoid arthritis, autoimmune hepatitis, primary biliary cirrhosis, autoimmune thyroiditis, [place]'s disease, pernicious anemia, autoimmune neuropathies, vasculitis, celiac disease, and bullous disease. For additional information, please refer to [email or web address] (This link is being provided for informational/ educational purposes only.) Performed By: #### 1 9946, 6646 #### [facility] Default [address] [place] [address] Q - LYME DISEASE AB screen W /REFLEX TO IgG IgMon 09-10-2021 LYME AB SCREEN <0.90 Normal [facility] [employer] Coord[employer] Comment on above: Order Comment: [facility] Testing performed at: QPT, [facility], [address] [place] [address], [address] [place], [address], Data Entry Associate: Lisandro Layton MD [facility] Collection Date/Time: [facility] Results Received Date/Time: [facility] Reported Date/Time: Result Comment: Inde x [...] 9946, 6646 #### [facility] [address] [place] [address] RBC Sedimentation Rateon ESR (Bld) [Velocity] 37.00 mm/h High 0.00-30.00 [facility] [employer] Coordinator Comment on above: Performed By: #### T SH, CMP, CRP, ESR, CK, CBCAD #### [facility] [address] [place], [place] [id number] TSHon 09-10-2021 TSH 2.500 uIU/mL Normal 0.400-4.500 [facility] [employer]inator Comment on above: Performed By: #### T SH, CMP, CRP, ESR, CK, CBCAD #### [facility] [address] [place], [place] [id number] Vitamin B12on 09-10-2021 Cobalamin (Vitamin B12) [Mass/Vol] 1113 pg/mL High 211-946 [facility] [employer] Coordinator Comment on above: Performed By: #### B 12 #### [facility] [address] [place], [place] [id number] CT CARDIAC SCORINGon 10-31 CT CARDIAC SCORING Addendum Begins Patient Name: MARLENI TADEO ADDENDUM: NON-CARDIOVASCULAR FINDINGS INCLUDED LUNGS, AIRWAYS AND [...] OSMAN SAGE MD Addendum Ends Patient Name: MARLENI TADEO STUDY: CT CARDIAC SCORING; 11/09/2018 10:41 am INDICATION: 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 COMPARISON: None. ACCESSION NUMBER(S): [id number] ORDERING CLINICIAN: NAOMI PADILLA TECHNIQUE: Using prospective [...] coronary heart disease events. According to the [place] [employer] Clinical Expert Consensus [...] P et al. Circulation. 2007; 115:402-426 Reading Office Agent: Dr. Benoit Gu, Date: 11/10/2018 6:46 pm Electronically signed by: OSMAN SAGE MD [facility] Vital Signs Date Time Vital Sign Value Performing Clinician Marcelo ruiz 04-07-2024 09:35-0500 Body height 167.6 cm Erinnnory Colorado DICE MAKER.PATIENT REGISTRATION REP Work Phone: [facility] 04-07-2024 09:35-0500 Body mass index (BMI) [Ratio] 20.98 kg/m2 Erinn Stanislav DICE MAKER.PATIENT REGISTRATION REP Work Phone: [facility] 04-07-2024 09:35-0500 Body temperature 98.4 [degF] Erinn Stanislav DICE MAKER.PATIENT REGISTRATION REP Work Phone: [facility] 04-07-2024 09:35-0500 Body weight 58.97 kg Erinn Stanislav DICE MAKER.PATIENT REGISTRATION REP Work Phone: [facility] 04-07-2024 09:35-0500 Diastolic blood pressure 90 mm[Hg] Erinn Colorado DICE MAKER.PATIENT REGISTRATION REP Work Phone: [facility] 04-07-2024 09:35-0500 Heart rate 89 /min Erinn Stanislav DICE MAKER.PATIENT REGISTRATION REP Work Phone: [facility] 04-07-2024 09:35-0500 Systolic blood pressure 126 mm[Hg] Erinn Colorado DICE MAKER.PATIENT REGISTRATION REP Work Phone: [facility] Encounters Encounter Date Encounter Type Care Provider Facility Start: 04-07-2024 End: 04-07-2024 Patient encounter procedure Erinn Colorado APRN.PATIENT REGISTRATION REP Work Phone: [facility] Comment on above: Epigastric pain (Coleen betty Dx); Weight loss; Diarrhea, unspecified type Start: 03-29-2024 ambulatory UNKNOWN PHYSICIAN [facility] Start: 03-29-2024 ambulatory JANY HOFFMAN [facility] Start: 03-29-2024 ambulatory KATHIE HOPPER [facility] Start: 02-16-2024 End: 02-16-2024 ambulatory SHELLY HEMMER [facility] Start: 02-10-2024 End: 02-10-2024 ambulatory [facility] Start: 01-20-2024 ambulatory SHELLY HEMMER Facility:[facility] Start: 01-08-2024 End: 01-08-2024 ambulatory SHELLY M HEMCECIL Not Available Start: 08-26-2023 End: 08-26-2023 ambulatory JANY HOFFMAN Not Available Start: 02-19-2023 End: 02-19-2023 ambulatory Lasha Jones Facility:[facility] Start: 02-19-2023 End: 02-19-2023 ambulatory MD Jany Hoffman Work Phone: [facility] Work Phone: Start: 02-19-2023 End: 02-19-2023 Patient encounter procedure MD Jany Hoffman Work Phone: [facility] [address] Work Phone: Start: 03-05-2022 End: 03-06-[address] JANY HOFFMAN Facility:[facility] Start: 01-08-2022 End: 01-09-[address] RICKIE RANDALL Facility:[facility] Procedures Date Procedure Procedure Detail Performing Clinician Start: 02-10-2024 Colonoscopy Erinn Colorado APRN.PATIENT REGISTRATION REP Work Phone: Start: 10-27-2018 Echocardiography Plan of Treatment Date Care Activity Detail Author Start: 01-06-2030 Urine microalbumin profile DTaP,Tdap,Td Vaccine (2 - Td or Tdap) [facility] Start: 02-09-2025 Screening for malignant neoplasm of colon [facility] Start: 05-04-2024 End: 05-04-2024 Patient encounter procedure 05/04/2024 2:30 PM EST Office Visit CP [facility] [address] [place] [address] Yael Anthony I, MD [address] [place] [address] six week follow up [facility] [place] [facility] Comment on above: six week follow up Start: 04-07-2024 End: 07-07-2024 CBC W Auto Differential panel - Blood COMPLETE BLOOD COUNT AND DIFFERENTIAL Lab Routine Epigastric pain Weight loss Diarrhea, unspecified type Expected: 04/07/2024, Expires: 07/07/2024 [facility] Comment on above: Expected: 04/07/2024, Expires: Start: 04-07-2024 End: 07-07-2024 CELIAC SCREEN WITH REFLEX CELIAC SCREEN WITH REFLEX Lab Routine Epigastric pain Weight loss Expected: 04/07/2024, Expires: 07/07/2024 [facility] Comment on above: Expected: 04/07/2024, Expires: Start: 04-07-2024 End: 07-07-2024 Comprehensive metabolic 2000 panel - Serum or Plasma COMPREHENSIVE METABOLIC PANEL Lab Routine Epigastric pain Weight loss Diarrhea, unspecified type Expected: 04/07/2024, Expires: 07/07/2024 [facility] Comment on above: Expected: 04/07/2024, Expires: Start: 02-01-2024 Covid-19 Vaccine () Covid-19 Vaccine () [facility] Start: 02-01-2024 Influenza vaccination Influenza Vaccine (#1) [facility] Start: 01-08-2023 Screening for malignant neoplasm of breast Mammogram Screening [facility] Start: 09-10-2015 Shingrix Vaccine (1 of 2) Shingrix Vaccine (1 of 2) [facility] Start: 2010 Diabetes Screening Diabetes Screening [facility] Start: 2010 Lipid panel Lipid Screening [facility] Start: 2010 Screening for malignant neoplasm of colon [facility] Start: 1986 Screening for malignant neoplasm of cervix Cervical Cancer Screening [facility] Start: 1984 Hepatitis B Vaccine (1 of 3 - 19+ 3-dose series) Hepatitis B Vaccine (1 of 3 - 19+ 3-dose series) [facility] Start: 09-10-1983 Hepatitis C screening Hepatitis C Screening [facility] Start: 09-10-1983 HIV screening HIV Screening [facility] Calprotectin [Mass/mass] in Stool CALPROTECTIN,FECAL Lab Routine Epigastric pain Weight loss Diarrhea, unspecified type Ordered: 04/07/2024 [facility] Comment on above: Ordered: 04/07/2024 End: 05-07-2025 CT Small bowel W contrast PO and W contrast IV CT ENTEROGRAPHY W IVCON Radiology Routine Epigastric pain 1 Occurrences starting 04/07/2024 until 05/07/2025 [facility] Work Phone: Comment on above: 1 Occurrences starting 04/07/2024 until 05/07/2025 Immunizations Immunization Date Immunization Notes Care Provider Eliana sotelo 01-07-2020 tetanus toxoid, redu lorene diphtheria toxoid, and acellular pertussis vaccine, adsorbed MD Jany Hoffman Work Phone: [facility] Payers Date Payer Category Payer Self-pay [id number] 2019 Medicare HUMANA MEDICARE HU[employer]NA MEDICARE PPO [id number] 2019-Present [phone] [address] [address] [place] [address] PPO [id number] 1965 Unknown [id number] 3 1965 Unknown [id number] 3 1965 Unknown [id number] 59 1965 Unknown [id number] 59 1965 Unknown [id number] [id number] 5 1965 Unknown [id number] [id number] 7 1965 Unknown [id number] [id number] 86 1965 Unknown [id number] [id number] 86 1965 Unknown [id number] [id number] 86 1965 Unknown [id number] [id number] 86 1965 Unknown [id number] 86 1959 Medicare [id number] Unknown [facility] [id number] Unknown [id number] 1 Social History Date Type Detail Facility Start: 01-07-2020 End: 04-07-2024 Tobacco smoking status NHIS Never smoked tobacco (finding) [facility] Start: 1965 Sex Assigned At Female F [facility] Start: 04-07-2024 Tobacco use and exposure Smokeless tobacco non-user [facility] Start: 04-07-2024 Alcoholic beverage intake Current drinker of alcohol (finding) [facility] Start: 04-07-2024 History of Social function [facility] Start: 04-07-2024 Tobacco use panel [facility] Start: 04-07-2024 Alcohol Comment rarely [facility] Start: 1965 Sex assigned at Not on file C [facility] History of Present illness Narrative 04-07-2024 Erinn Colorado APRN.[facility] - 04/07/2024 9:40 AM EST Note Date & Type Note Facility 04-07-2024 History of Presen t illness Narrative Images from the original note were not included. Ms. Marleni Tadeo is here today for my opinion regarding early satiety, gastroparesis, weight loss. My final recommendation will be communicated back to the requesting physician by way of shared medical record or letter. HPI: April 07, 2024: 58-year-old pleasant white female here with her . She states that she has always had GI issues, even when she was 13. She was using Prevacid for several years. She denies any GERD symptoms now, she had switched over to taking apple cider vinegar and black licorice which resolved her symptoms. She did not want to stay on a PPI as she got diagnosed with osteoporosis at the age of 50. History of degenerative joint disease and has some nerve damage, she has followed with neurology about a year ago for migraines and she had some decreased sensation bilateral arms. She is not diabetic. She complains of globus sensation but no dysphagia. On January 02 she started having some epigastric discomfort, early satiety. She did lose 30 pounds unintentionally since July of this year. Her daughter got on January 16 but she denied being stressed. She did have an episode of diarrhea significant that lasted about 11 days in January or end of December. This started about a week after eating a Gyro. Her daughter ate the same thing and did feel kind of off . She was having nocturnal diarrhea, fecal leakage and very urgent diarrhea at the time. Ever since then her bowels have been more erratic, she goes 3 days without a bowel movement and then she has 1 day of a blowout of diarrhea . She uses Imodium on a as needed basis. She took it today before driving here just in case. Denies rectal bleeding, melena, mucus. Denies fever or chills. She has episodes of nausea and vomiting, just liquid bile comes up. She had workup with a colonoscopy and EGD in January of this year after having a CT scan that showed a questionable duodenal mass. The colonoscopy was negative other than hemorrhoids, there were no biopsies taken for microscopic colitis. EGD showed some retained liquid in the stomach indicating some outlet delay, and between the bulb and the second portion of the duodenum there was inflammation with thickening of the mucosa with multiple tiny white small ulcers questionable Emili, slight twisting, the rest of the duodenum and beginning of the jejunum were all normal, the biopsies were consistent with patchy mild to moderate active duodenitis with associated eosinophilia and focal erosion/ulceration, no features of celiac disease. Stomach biopsies showed mild chronic inactive gastritis, negative for H. pylori. She denies any history of asthma or allergies. Gastric emptying study showed moderate delay, this was done on March 29, she did start a gastroparesis diet and she was started on metoclopramide 5 mg 4 times daily before meals and at bedtime without much difference in her symptoms. Current Outpatient Medications Medication Sig SUMAtriptan (IMITREX) 25 mg tablet Take 25 mg by mouth. meloxicam (MOBIC) 7.5 mg tablet Take 1 tablet by mouth once daily. Bacillus coagulans-Inulin 1 billion-250 cell-mg cap Take by mouth as directed. diazePAM (VALIUM) 5 mg tablet Take 5 mg by mouth. magnesium lactate ER (MAGTAB) 84 mg TbER Take 1 tablet by mouth once daily. melatonin 10 mg TbER Take 10 mg by mouth. metoclopramide HCl (REGLAN) 5 mg tablet TAKE 1 TABLET BY MOUTH 30 MINUTES BEFORE MEALS AND EVERY NIGHT AT BEDTIME iv contrast (will be provided with radiology test) CT Enterography W Inject, intravenously, once for 1 dose.No IV access, insert saline lock prior to the beginning of sedation, infusion, injection of imaging exam. Discontinue saline lock post exam. If Pt. has a central line or IVAD, may access for administration according to line specific nursing protocol. Once exam is complete flush line and de-access according to line specific nursing protocol in the CT contrast administration guidelines link. enteric contrast (will be provided with radiology test) For CT ENTEROGRAPHY W IVCON order Administer, As Directed One Time Only, via Oral, Rectal, both Oral and Rectal, Enteric Tube, Stoma or Indwelling Catheter, Enteric Contrast as designated per enteric contrast guidelines. budesonide, enteric coated (ENTOCORT EC) 3 mg 24 hr capsule Take 1 capsule by mouth once daily. Take 3 tabs daily x 6 weeks (9mg), 2 tabs daily x 2 weeks (6mg), total 8 week course No current facility-administered medications for this visit. ALLERGIES No Known Allergies PAST MEDICAL HISTORY Diagnosis Date A-fib ([facility]) Abnormal stress echo Anxiety Arthritis Cerebral ischemia Depression Fibromyalgia GERD (gastroesophageal reflux disease) Headache Hyperlipidemia Insomnia Migraines Neuromuscular disorder ([facility]) Neuropathy Osteoporosis Palpitations Polyarthralgia Restless leg syndrome Right sided weakness Tricuspid valve insufficiency PAST SURGICAL HISTORY Procedure Laterality Date SNGL COLONOSCOPY EGD DIAGNOSTIC FAMILY HISTORY Problem Relation Age of Onset Heart disease Mother Hypertension Mother Hyperlipidemia Mother Mental illness Mother Lung Cancer Father Social History Tobacco Use Smoking status: Never Smokeless tobacco: Never Vaping Use Vaping status: Never Used Substance Use Topics Alcohol use: Yes Comment: rarely Drug use: Never REVIEW OF SYSTEMS CONST: Denies loss of appetite, fatigue, fever, night sweats and weight loss. EYES: Denies eye symptoms. ENMT: Denies ear symptoms. Denies bloody nose. Denies hoarseness, voice changes, cough. CARDIOVASCULAR: Denies chest pain, irregular heartbeat and swelling of ankles. RESPIRATORY: Denies shortness of breath. GI: Reports epigastric discomfort, nausea, vomiting, early satiety, constipation, diarrhea but denies rectal bleeding, belching, dysphagia, heartburn, hemorrhoids. MUSCULOSKELETAL: Denies arthritis, back pain and joint swelling. SKIN: Denies itchy skin and rash, jaundice. BREAST: Denies breast problems. NEURO: Denies dizziness, memory loss and paralysis. PSYCH: Denies anxiety and depression. ENDOCRINE: Denies excessive thirst. HEMATOLOGY/LYMPHOLOGY: Denies bruising and enlarged lymph nodes. Reviewed and updated OBJECTIVE BP 126/90 Pulse 89 Temp 98.4 Ht 5' 6 (1.68m) Wt 130 lb (59.0kg) BMI 20.99 kg/(m^2). EXAM CONST: Appears well nourished. No signs of acute distress present. Speech is normal. Alert and oriented X 3. No involuntary movement. Patient is cooperative. HEAD/FACE: Normocephalic on inspection. EYES: PERRLA. Sclerae clear and anicteric. ENMT: Nasopharynx: Normal to inspection. Oropharynx:Appears normal. Neck: Normal to inspection and palpation. Neck is supple without thyromegaly or lymphadenopathy. No masses appreciated. No JVD. RESP: Respiration rate is normal. Lungs are clear bilaterally. CV: Rate is regular. Rhythm is regular. No gallops or rubs. No heart murmur appreciated. Pedal pulses: 2+ and equal bilaterally. EXTREMITIES: No clubbing, cyanosis or edema. ABDOMEN: Positive bowel sounds in all quadrants. Normal to percussion. Abdomen is soft, epigastric tenderness with palpation. And nondistended without guarding, rigidity or rebound tenderness. No abdominal masses palpable. No palpable hepatosplenomegaly. PERINEUM/ANUS/RECTUM: Exam deferred at this time. LYMPH: No palpable or visible regional lymphadenopathy. MUSCULO: Walks with a normal gait. SKIN: Skin is warm and dry with no jaundice, lesions or rashes. NEURO: No focal deficits appreciated. Data Review: 01/08/24: Component Ref Range & Units 2 mo ago C. DIFFICILE PCR NEGATIVE NEGATIVE Component 2 mo ago E COLI SHIGA TOXIN EIA E coli Shiga Toxin EIA E COLI SHIGA TOXIN EIA Negative Component 2 mo ago SALMONELLA/SHIGELLA SCREEN Salmonella/Shigella Screen SALMONELLA/SHIGELLA SCREEN No Salmonella or Shigella recovered. Component 2 mo ago CAMPYLOBACTER CULTURE Campylobacter Culture No Campylobacter species isolated. NM GASTRIC EMPTYING SOLID 03/29/24: Order: [id number] Narrative HISTORY: A 58-year-old female with the history of early satiety and fullness. TECHNIQUE: Radionuclide Gastric Emptying Imaging with the solid food. COMPARISON: None available.. FINDINGS: The solid phase of gastric emptying study is performed by using 1.0 mCi of technetium-99m sulfur colloid labeled 4 ounces of eggs, slice of bread with butter and 4 ounces of liquid. The gastric emptying images are obtained at 1 hour, 2 hours, 3 hours and 4 hours after ingestion of radiolabeled solid food. Patient was able to retain entire meal. The calculated T1/2 of the gastric emptying is 199 minutes by sloped method. The retention of the gastric activity is 79% at 60 minutes, 58% at 2 hours and 39% at 4 hours after ingestion of the radiolabeled solid food. IMPRESSION: Markedly delayed gastric emptying for solid phase of examination. Values as described above. REFERENCE: See the normal values in following table. TABLE Normal Limits for Gastric Retention Time Point Lower Limit(a lower value suggests abnormally rapid gastric emptying) Upper Limit (a greater value suggests abnormally delayed gastric emptying) 30 mins 70% 1 hour 30% 90% 2 hours 60% 3 hours 30% 4 hours 10% Data are from Am J Gatroenterology 2007: 102:1-11 CT ABDOMEN PELVIS W CON Order: [id number] [place] [address] CT Scan Report Signed Patient: MARLENI TADEO MR#: [id number] : 1965 Acct:[id number] Age/Sex: 58 / F ADM Date: 02/04/24 Loc: CT Attending Dr: Non-Staff Physician Lopez Ordering Physician: Itzel Schaefer M.D. Date of Service: 02/04/24 Procedure(s): CT abdomen pelvis w con Accession Number(s): [id number] cc: JANY HOFFMAN [place] [address] Patient Name: MARLENI TADEO MRN: [id number] date: 1965 Sex: F Assigned Patient Location: CT Current Patient Location: CT Accession/Order Number: [id number] Exam Date: 02/04/2024 13:35 Report Date: 02/04/2024 14:11 At the request of: NON-STAFF PHYSICIAN Procedure: CT abdomen pelvis w con EXAM: CT scan of the abdomen and pelvis using 100 mL of IV iodinated contrast. Oral contrast. Dose reduction technique used: Automated exposure control and/or adjustment of the mA and/or kV according to patient size and/or use of iterative reconstruction technique. REASON FOR EXAM: weight loss COMPARISON: None FINDINGS: Focally distended segment of the duodenum in the third portion of the duodenum that is hypoenhancing, unclear if this is simply due to duodenal contents versus a underlying mass. Suggestion of a small lucent lesion in the upper L3 vertebral body. Small fat-containing umbilical hernia. No evidence of appendicitis. No free fluid in the abdomen or pelvis. No free intraperitoneal air. No dilated or thickened loops of small bowel or colon. No hydronephrosis or obstructing renal or ureteral calculi. Liver, pancreas, spleen, bilateral kidneys, and bilateral adrenal glands are otherwise unremarkable. No lymphadenopathy in the abdomen or pelvis. Remainder unremarkable. CT/CT abdomen pelvis w con IMPRESSION: 1. Possible duodenal mass versus focally distended segment. Recommend further evaluation with endoscopy if none performed recently. 2. Small lucent L3 lesion could represent a small hemangioma although is indeterminate. Electronically authenticated by: STU AMBROSIO Date: 02/04/2024 14:11 Assessment/Plan: 58-year-old female here with her . She states that she has always had GI issues, even when she was 13. She was using Prevacid for several years. She denies any GERD symptoms now, she had switched over to taking apple cider vinegar and black licorice which resolved her symptoms. She did not want to stay on a PPI as she got diagnosed with osteoporosis at the age of 50. She complains of globus sensation but no dysphagia. On January 02 she started having some epigastric discomfort, early satiety. She did lose 30 pounds unintentionally since July of this year. Her daughter got on January 16 but she denied being stressed. She did have an episode of diarrhea significant that lasted about 11 days in January or end of December. This started about a week after eating a Gyro. Her daughter ate the same thing and did feel kind of off . She was having nocturnal diarrhea, fecal leakage and very urgent diarrhea at the time. Ever since then her bowels have been more erratic, she goes 3 days without a bowel movement and then she has 1 day of a blowout of diarrhea . She uses Imodium on a as needed basis. She took it today before driving here just in case. She has episodes of nausea and vomiting, just liquid bile comes up. She had workup with a colonoscopy and EGD in January of this year after having a CT scan that showed a questionable duodenal mass. The colonoscopy was negative other than hemorrhoids, there were no biopsies taken for microscopic colitis. EGD showed some retained liquid in the stomach indicating some outlet delay, and between the bulb and the second portion of the duodenum there was inflammation with thickening of the mucosa with multiple tiny white small ulcers questionable Emili, slight twisting, the rest of the duodenum and beginning of the jejunum were all normal, the biopsies were consistent with patchy mild to moderate active duodenitis with associated eosinophilia and focal erosion/ulceration, no features of celiac disease. Stomach biopsies showed mild chronic inactive gastritis, negative for H. pylori. Gastric emptying study showed moderate delay, this was done on March 29, she did start a gastroparesis diet and she was started on metoclopramide 5 mg 4 times daily before meals and at bedtime without much difference in her symptoms. Records were reviewed also along with Dr. Anthony, it is unclear whether she had some type of infectious gastroenteritis, whether this idiopathic gastroparesis is transient and whether there is significance of the duodenal findings, duodenitis and increased eosinophils. She likely has a component of irritable bowel as well. 1. Advised to stick with the gastroparesis diet and metoclopramide 5 mg p.o. 4 times daily before meals and at bedtime for now. 2. Obtain CBC/CMP, manual eosinophilic count, celiac markers. 3. Obtain stool for fecal calprotectin. 4. CT enterography to assess the small bowel further. 5. Trial of budesonide 9 mg p.o. daily x 6 weeks and 6 mg p.o. daily x 2 weeks, total of 8-week course. 6. Follow-up with Dr. Anthony in 4 to 6 weeks. Erinn Colorado APRN.[facility] [address] [place] [address], [address] [place] [address] Department: [phone] This note was generated with voice recognition software and may contain errors, including spelling, grammar, syntax and misrecognition of what was dictated, that are not fully corrected documented in this encounter [facility] Evaluation note Note Date & Type Note Facility Evaluation note No assessment information [facility] Phone: Evaluation note Note Date & Type Note Facility Evaluation note Diagnosis Epigastric pain- Primary Abdominal pain, epigastric Weight loss Loss of weight Diarrhea, unspecified type documented in this encounter [facility] Summary Purpose Family History No Family History Records Found Relationship Condition Age at Onset Recorded Date/T mary ann father Malignant neoplasm Unknown Advance Directives No Advanced Directives Records Found Advance Directive Response Recorded Date/ Time Advance Directives No March 12, 2018 11:49am Reason for Referral Specialty Diagnoses / Procedures Referred By Mary t Referred To Contact Erinn Colorado, BRINA.PATIENT REGISTRATION REP [address] [place] [address] Referral ID Status Reason Start Date Expiration Date V isits Requested Visits Authorized [id number] Pending Review 1 1 Specialty Diagnoses / Procedures Referred By Contac t Referred To Contact CT IMAGING Diagnoses Epigastric pain Procedures CT ENTEROGRAPHY W IVCON CT ABD & PELVIS W/CONTRAST Erinn Colorado, BRINA.PATIENT REGISTRATION REP [address] [place] [address] [place] [id number] Referral ID Status Reason Start Date Expiration Date Visits Requested Visits Authorized [id number] New Request Auto-Generat ed Referral 04/07/2024 05/07/2025 1 1 Additional Source Comments INFORMATION SOURCE (unrecogn ized section and content) DATE CREATED AUTHOR [facility]/11/2018 [facility] DATE CREATED AUTHOR AUTHOR'S ORGANIZ ATION 09/11/2021 [facility] DATE CREATED AUTHOR AUTHOR'S ORGANIZ ATION 03/08/2022 [facility] DATE CREATED AUTHOR AUTHOR'S ORGANIZ ATION 03/04/2023 [facility] DATE CREATED AUTHOR AUTHOR'S ORGANIZ ATION 01/10/2024 [facility] EPIC DATE CREATED AUTHOR AUTHOR'S ORGANIZ ATION 02/14/2024 [facility] DATE CREATED AUTHOR AUTHOR'S ORGANIZ ATION 02/18/2024 [facility] DATE CREATED AUTHOR AUTHOR'S ORGANIZ ATION 03/30/2024 [facility] DATE CREATED AUTHOR AUTHOR'S ORGANIZ ATION 04/11/2024 [facility] Care Teams (unrecognized sec tion and content) Team Status: Active Member Role Status Dates Jany Hoffman MD Primary Care Provider Active Team Status: Inactive Member Role Status Dates Jany Hoffman MD Primary Care Provider Active Lasha Jones MD Attending Provider Active Clinical Assessment Manager Relationship Specialty Start Date End Date Jany Hoffman MD [address] [facility] [address] [place] [address] (work) PCP - General Family Medicine 04/07/24 Goals (unrecognized section and content) Goals may be documented in a n alternate section Source Comments (unrecognize d section and content) In the event this informatio n is protected by the Federal Confidentiality of Alcohol and Drug Abuse Patient Records regulations: The Federal rules restrict any use of the information to criminally investigate or prosecute any alcohol or drug abuse patient.[facility] Reason for Visit (unrecogniz ed section and content) Reason Comments Consult Pt wants to go over all of her test results and come up with a plan of action. FOR RECORDS PERTAINING TO PATIENTS WHO ARE [...] BE BASED ON THE PRIMARY CLINICAL RECORDS. [employer] [facility]. provides no warranty or guarantee of the accuracy or completeness of information in this document.
[2024-04-14 14:11] LABS: Calprotectin, Fecal 46 ug/g (0-120)
== END 2024-04-11 10:12 | disposition home or self-care (01) ==
LOC: LAB 10:11
PROVIDERS: PCP Family Medicine
DX: R10.13 Epigastric pain (principal); R63.4 Abnormal weight loss; R19.7 Diarrhea, unspecified
CPT/HCPCS: 83993